=== PATIENT | female | born 1945 | race Caucasian/White ===

== ENCOUNTER 2019-11-18 17:39 | Emergency (ER) | payer MEDICARE, MEDICAID ==
[~2019-11-18] VITALS: Ht 165.1 cm; Wt 68.0 kg
[~2019-11-18 17:39] MED LIST: ACET500T68 PO; ALBU2.5V8 IH; AMIO200T4 PO; AMIO200T7 PO; APIX5TAB PO; ATOR40TA59 PO; CETI10TA16 PO; CYAN100031 PO; DEXT15DR5 EACHEYE; ERGO800010 PO; ERYT1OIN6 OP; ESCITALOPRAM OX10 MG PO; EZET10TA20 PO; FERR325T14 PO; FLUT16SP NS; HYDR-2868 PO; HYDR-3164 PO; INSU100I13 SQ; LIDO700A21 TP; MELA5TAB11 PO; METF500T11 PO; MICO113C TP; OLOP2.5D EACHEYE; OXYC5CAP PO; PANT40TA77 PO; POLY2500 PO; VITA1CAP PO
[2019-11-18 17:55] VITALS: BP 160/93
--- NOTE | 2019-11-18 18:13 | PHYS DOC ---
Past Medical History Past Medical History: A-Fib, Anxiety, Depression, Diabetes-Type I Past Surgical History: Appendectomy Smoking Status: Never Smoker Alcohol Use: None General Adult EDM: Chief Complaint: RIB PAIN HPI: HPI: Patient is a 74 year old female who presents with 3 days ago lost her balance and fell onto the hard wood floor on to her right side. She has bruising to her right lateral humerus and bruising to her right ribs. She states it hurts to take a deep breath. Denies fever, cough, chest pain, hitting her head, loc, dizziness, headache, visual changes, numbness or tingling, abdominal pain, nausea, vomiting. Review of Systems: Review of Systems: Respiratory: Denies cough. + shortness of breath. [] Musculoskeletal: Right rib pain. Denies back pain or joint pain. [] Heart Score: Risk Factors: Risk Factors: DM, Current or recent (<one month) smoker, HTN, HLP, family history of CAD, obesity. Risk Scores: Score 0 - 3: 2.5% MACE over next 6 weeks - Discharge Home Score 4 - 6: 20.3% MACE over next 6 weeks - Admit for Clinical Observation Score 7 - 10: 72.7% MACE over next 6 weeks - Early Invasive Strategies Allergies: Allergies: Allergies Coded Allergies Type Severity Reaction Last Updated Verified fenofibrate Allergy Intermediate 09/13/19 Yes gabapentin Allergy Intermediate 09/13/19 Yes lisinopril Allergy Intermediate 09/13/19 Yes promethazine Allergy Intermediate 09/13/19 Yes rosuvastatin Allergy Intermediate 09/13/19 Yes sitagliptin Allergy Intermediate 09/13/19 Yes buspirone Adverse Reaction Intermediate N/V 09/13/19 Yes codeine Adverse Reaction Intermediate N/V 09/13/19 Yes glyburide Adverse Reaction Intermediate EDEMA 09/13/19 Yes propranolol Adverse Reaction Intermediate BRADYCARDIA 09/13/19 Yes Physical Exam: PE: Constitutional: Well developed, well nourished, no acute distress, non-toxic appearance. [] HENT: Normocephalic, atraumatic, bilateral external ears normal, oropharynx moist, no oral exudates, nose normal. [] Eyes: PERRLA, EOMI, conjunctiva normal, no discharge. [] Neck: Normal range of motion, no tenderness, supple, no stridor. [] Cardiovascular:Heart rate tachy regular rhythm, no murmur [] Lungs & Thorax: Bilateral upper breath sounds clear and lower breath sounds diminished bilaterally to auscultation [] Abdomen: Bowel sounds normal, soft, no tenderness, no masses, no pulsatile masses. [] Skin: Warm, dry, no erythema, no rash. Bruising to right ribs. Bruising to lateral right humerus. [] Back: No tenderness, no CVA tenderness. [] Extremities: No tenderness, no cyanosis, no clubbing, ROM intact, no edema. [] Neurologic: Alert and oriented X 3, normal motor function, normal sensory function, no focal deficits noted. [] Psychologic: Affect normal, judgement normal, mood normal. [] EKG: EKG: [] Radiology/Procedures: Radiology/Procedures: [] Impression: [address] [address] IMAGING REPORT Signed PATIENT: JUANCARLOS THORPE ACCOUNT: [id number] : 1945 LOCATION: ER AGE: 74 SEX: F EXAM STATUS: PRE ER ORD. PHYSICIAN: CHASE NGUYEN APRN REASON: fall, right rib bruising and pain PROCEDURE: RIBS RIGHT RIBS RIGHT History: Fall, right rib bruising and pain Comparison: September 26, 2019 Findings: 4 views of the right ribs are submitted. There is again granuloma lobe at the right lateral lung base. There is no right pneumothorax, dependent pleural fluid, or infiltrate. Left chest was not entirely included. There is atherosclerotic calcification near the aortic arch. No displaced right rib fracture is identified although there could be a nondisplaced right lateral 10th rib fracture. There is some coronary calcification. Impression: 1. No displaced right rib fracture is identified, questionable nondisplaced right lateral 10th rib fracture. Electronically signed by: Silvana Olvera MD (11/18/2019 6:29 PM) [facility] DICTATED and SIGNED BY: SILVANA OLVERA MD DATE: 11/18/[address] [id number] IMAGING REPORT Signed PATIENT: JUANCARLOS THORPE ACCOUNT: [id number] : 1945 LOCATION: ER AGE: 74 SEX: F EXAM STATUS: PRE ER ORD. PHYSICIAN: CHASE NGUYEN APRN REASON: fall, right rib bruising and pain PROCEDURE: CHEST PA & LATERAL Chest radiograph 11/18/2019 6:01 PM INDICATION: Fall with right rib bruising and pain COMPARISON: 09/13/2019 TECHNIQUE: Frontal and lateral views of the chest are provided. FINDINGS: The cardiomediastinal silhouette is within normal limits. There are no pleural effusions. There is no pulmonary vascular congestion. There is no pneumothorax. The lungs are clear. 9 mm calcified granuloma noted in the lateral right lung base. Pulmonary emphysematous changes are present. No significant osseous abnormality is identified. IMPRESSION: COPD changes without acute cardiopulmonary process. No definite acute osseous abnormality is visualized. Electronically signed by: Romeo Damon MD (11/18/2019 6:31 PM) [facility] DICTATED and SIGNED BY: ROMEO DAMON MD DATE: 11/18/191830 Course & Med Decision Making: Course & Med Decision Making Pertinent Labs and Imaging studies reviewed. (See chart for details) Alert and oriented. Speaks in full clear sentences. Patient does have generalized tremors. States she is able to get up and walk on her own without a cane or a walker. She states she is best been taking Tylenol for pain but is painful. I will order her a incentive spirometer. Bruising to the right ribs in a horizontal line that wraps around to part of the posterior side of ribs. No crepitus is felt but the area is very tender. Patient does have a vertical lateral humerus bruising but there is no deformity or swelling or pain with palpation. She has strong typing bookkeeper in the right upper extremity that is affected. She can make a fist and fully extend the arm at the elbow and has full range of motion of the shoulder. Denies any pain with movement. Radial pulse tremor present. Skin is pink warm and dry. Cap refill less than 3 seconds. Lungs are clear in upper lobes but diminished in lower lobes bilaterally. Patient has a history of A. fib, anxiety, diabetes, depression, appendectomy. Patient states that although she is allergic to codeine she can take hydrocodone and she has taken it before. Patient is educated on incentive spirometry and how it is important to use it to lower her risk of pneumonia. [] Power Disclaimer: Power Disclaimer: This electronic medical record was generated, in whole or in part, using a voice recognition dictation system. Departure Departure Impression: Primary Impression: Fall Qualified Codes: W19.XXXA - Unspecified fall, initial encounter Additional Impression: Rib fracture Qualified Codes: S22.31XA - Fracture of one rib, right side, initial encounter for closed fracture Disposition: HOME, SELF-CARE Condition: STABLE Referrals: UNKNOWN PCP NAME (PCP) Patient Instructions: Incentive Spirometer, Rib Fracture, Kkrn-da-[id number] Additional Instructions: Do not wrap anything around your ribs. Use incentive spirometer to lower risk of Pneumonia. Follow up with primary care provider. Take medication as prescribed. Do not drive or drink alcohol on this medication as it will make you sleepy. Scripts Hydrocodone/Apap 5-325 (NORCO 5-325 TABLET) 1 Each Tablet 1 TAB PO PRN Q6HRS PRN for PAIN, #10 TAB 0 Refills Prov: CHASE NGUYEN APRN 11/18/19 CHASE NGUYEN APRN Nov 18, 2019 18:13
[2019-11-18] MEDS: HYDROcodone/APAP 5/325MG 1 TAB TABLET PO ONE (18:15)
--- NOTE | 2019-11-18 18:32 | RAD ---
RIBS RIGHT History: Fall, right rib bruising and pain Comparison: September 26, 2019 Findings: 4 views of the right ribs are submitted. There is again granuloma lobe at the right lateral lung base. There is no right pneumothorax, dependent pleural fluid, or infiltrate. Left chest was not entirely included. There is atherosclerotic calcification near the aortic arch. No displaced right rib fracture is identified although there could be a nondisplaced right lateral 10th rib fracture. There is some coronary calcification. Impression: 1. No displaced right rib fracture is identified, questionable nondisplaced right lateral 10th rib fracture. Electronically signed by: Sunday Marin MD (11/18/2019 6:29 PM) [facility]
--- NOTE | 2019-11-18 18:34 | RAD ---
Chest radiograph 11/18/2019 6:01 PM INDICATION: Fall with right rib bruising and pain COMPARISON: 09/13/2019 TECHNIQUE: Frontal and lateral views of the chest are provided. FINDINGS: The cardiomediastinal silhouette is within normal limits. There are no pleural effusions. There is no pulmonary vascular congestion. There is no pneumothorax. The lungs are clear. 9 mm calcified granuloma noted in the lateral right lung base. Pulmonary emphysematous changes are present. No significant osseous abnormality is identified. IMPRESSION: COPD changes without acute cardiopulmonary process. No definite acute osseous abnormality is visualized. Electronically signed by: Carley Valerio MD (11/18/2019 6:31 PM) [facility]
[2019-11-18] MEDS ORDERED: HYDR-3164 PO (18:40)
== END 2019-11-18 19:05 | disposition home or self-care (01) ==
LOC: ER 17:39
DX: S22.31XA Fracture of one rib, right side, initial encounter for closed fracture (principal); S40.011A Contusion of right shoulder, initial encounter; E10.9 Type 1 diabetes mellitus without complications; I48.91 Unspecified atrial fibrillation; Z90.89 Acquired absence of other organs; Z88.5 Allergy status to narcotic agent; Z88.8 Allergy status to other drugs, medicaments and biological substances; W18.39XA Other fall on same level, initial encounter; Y93.89 Activity, other specified; Y92.89 Other specified places as the place of occurrence of the external cause; Y99.8 Other external cause status
CPT/HCPCS: 71046; 71100; 99284

== ENCOUNTER 2020-01-02 17:56 | Emergency (ER) | payer MEDICARE, MEDICAID ==
[~2020-01-02] VITALS: Ht 162.6 cm; Wt 77.2 kg
[~2020-01-02 17:56] MED LIST changes: +METF-658 PO; -METF500T11 PO; -OLOP2.5D EACHEYE; +OLOP2.5D12 EACHEYE
[2020-01-02] MEDS ORDERED: IV NORMAL SALINE 1000ML BAG 1,000 ML IV SCH (18:25)
[2020-01-02] MEDS ORDERED: ONDANSETRON PF 4 MG/2 ML VIAL. IVP ONE (18:30)
--- NOTE | 2020-01-02 18:43 | PHYS DOC ---
Past Medical History Past Medical History: A-Fib, Anxiety, Depression, Diabetes-Type I Past Surgical History: Appendectomy Smoking Status: Never Smoker Alcohol Use: None General Adult EDM: Chief Complaint: ABDOMINAL PAIN HPI: HPI: Patient is a 74 year old female who presents with complaint of lower abdominal pain for the last 3 days. Patient states that pain has progressively gotten worse. Currently she rates her pain to be an 8 out of 10. She denies any nausea, vomiting or diarrhea. She describes pain as a deep ache. Patient indicates that she has had a number of abdominal surgeries in the past to include appendectomy. Patient is not aware of any exacerbating or alleviating factors. [] Review of Systems: Review of Systems: Constitutional: Denies fever or chills. [] Respiratory: Denies cough or shortness of breath. [] Cardiovascular: Denies chest pain or edema. [] GI: Complains of lower abdominal pain without vomiting or diarrhea. [] Integument: Denies rash. [] Neurologic: Denies headache, focal weakness or sensory changes. [] A full 10 point review of systems has been reviewed and is otherwise negative. Heart Score: Risk Factors: Risk Factors: DM, Current or recent (<one month) smoker, HTN, HLP, family history of CAD, obesity. Risk Scores: Score 0 - 3: 2.5% MACE over next 6 weeks - Discharge Home Score 4 - 6: 20.3% MACE over next 6 weeks - Admit for Clinical Observation Score 7 - 10: 72.7% MACE over next 6 weeks - Early Invasive Strategies Current Medications: Current Medications Medications (Trade) Dose Ordered Sig/[facility] Start Time Stop Time Status Last Admin Dose Admin Fentanyl Citrate (Fentanyl 2ml Vial) 25 mcg PRN Q15MIN PRN 01/02/20 18:30 01/03/20 18:29 Ondansetron HCl (Zofran) 4 mg 1X ONCE 01/02/20 18:30 01/02/20 18:31 DC Sodium Chloride 1,000 ml @ 1,000 mls/hr Q1H 01/02/20 18:25 01/02/20 19:24 Allergies: Allergies: Allergies Coded Allergies Type Severity Reaction Last Updated Verified fenofibrate Allergy Intermediate 09/13/19 Yes gabapentin Allergy Intermediate 09/13/19 Yes lisinopril Allergy Intermediate 09/13/19 Yes promethazine Allergy Intermediate 09/13/19 Yes rosuvastatin Allergy Intermediate 09/13/19 Yes sitagliptin Allergy Intermediate 09/13/19 Yes buspirone Adverse Reaction Intermediate N/V 09/13/19 Yes codeine Adverse Reaction Intermediate N/V 09/13/19 Yes glyburide Adverse Reaction Intermediate EDEMA 09/13/19 Yes propranolol Adverse Reaction Intermediate BRADYCARDIA 09/13/19 Yes Physical Exam: PE: Constitutional: Well developed, well nourished, no acute distress, non-toxic appearance. [] HENT: Normocephalic, atraumatic, bilateral external ears normal, oropharynx moist, no oral exudates, nose normal. [] Eyes: PERRLA, EOMI, conjunctiva normal, no discharge. [] Neck: Normal range of motion, no tenderness, supple. [] Cardiovascular: Regular rate and rhythm [] Lungs & Thorax: Bilateral breath sounds clear to auscultation [] Abdomen: Bowel sounds normal, soft, no tenderness. [] Skin: Warm, dry, no erythema, no rash. [] Extremities: No tenderness, no cyanosis, no clubbing, ROM intact. [] Neurologic: Alert and oriented X 3, no focal deficits noted. [] EKG: EKG: EKG demonstrates normal sinus rhythm with rate of 91. [] Radiology/Procedures: Radiology/Procedures: [] Impression: PROCEDURE: CT ABDOMEN PELVIS WO CONTRAST Exam: CT of abdomen and pelvis without contrast INDICATION: Lower abdominal pain TECHNIQUE: Sequential axial images through the abdomen and pelvis obtained without IV contrast. Sagittal and coronal reformatted images were reconstructed from the axial data and reviewed. Comparisons: 09/24/2019 FINDINGS: Heart size is normal. No pericardial effusion. Visualized lung bases are clear. No pleural effusion. Evaluation of solid organs is limited secondary to noncontrast technique. Liver, spleen, pancreas, gallbladder and adrenals are unremarkable. No perinephric inflammation or hydronephrosis. No renal or ureteral calculi are identified. Bladder is decompressed not well evaluated. Uterus is absent. No abnormal adnexal mass. Few scattered diverticula noted at the sigmoid colon without evidence of acute diverticulitis. There is fat stranding noted in the right lower quadrant surrounding a loop of distal ileum which demonstrates wall thickening. Redemonstration of spiculated nodule at the base of the appendix. No free intra-abdominal air or fluid. Abdominal aorta has a normal course and caliber. No enlarged abdominal lymph nodes are identified. No suspicious osseous lesions or acute fractures. IMPRESSION: 1. Wall thickening and adjacent inflammatory changes at the distal ileum favored represent a focal enteritis. 2. Redemonstration of spiculated nodule in the right lower quadrant mesentery at the base of the appendix. Differential remains unchanged from prior study. The appendix itself is not dilated. Exposure: One or more of the following in the visualized dose reduction techniques were utilized for this examination: 1. Automated exposure control 2. Adjustment of the MA and/or KV according to patient size 3. Use of iterative of reconstructive technique Electronically signed by: Hunter Greco MD (01/02/2020 9:50 PM) [id number] DICTATED and SIGNED BY: HUNTER GRECO MD DATE: 01/02/202149 Course & Med Decision Making: Course & Med Decision Making Pertinent Labs and Imaging studies reviewed. (See chart for details) [] Dragon Disclaimer: Dragon Disclaimer: This electronic medical record was generated, in whole or in part, using a voice recognition dictation system. Departure Departure Impression: Primary Impression: Lower abdominal pain Disposition: HOME, SELF-CARE Condition: STABLE Referrals: UNKNOWN PCP NAME (PCP) Patient Instructions: Abdominal Pain Scripts Ondansetron (ONDANSETRON ODT) 4 Mg Tab.rapdis 1 TAB PO PRN Q6-8HRS PRN for NAUSEA, #15 TAB Prov: BRIAN APPLE Jr. DO 01/02/20 Hydrocodone/Apap 5-325 (NORCO 5-325 TABLET) 1 Each Tablet 1-2 EACH PO PRN Q6HRS PRN for PAIN, #15 as needed for pain Prov: BRIAN APPLE Jr. DO 01/02/20 Justicifation of Admission Dx: Justifications for Admission: Justification of Admission Dx: N/A BRIAN APPLE Jr. DO Jan 02, 2020 18:43
[2020-01-02 18:58] LABS: BASO # 0.1 x10^3/uL (0.0-0.2); BASO % 1 % (0-3); EOS # 0.2 x10^3/uL (0.0-0.7); EOS % 3 % (0-3); HEMATOCRIT 39.3 % (36.0-47.0); HEMOGLOBIN 13.4 g/dL (12.0-15.5); LYMPH # 1.8 x10^3/uL (1.0-4.8); LYMPH % 29 % (24-48); MEAN CORPUSCULAR HEMOGLOBIN 30 pg (25-35); MEAN CORPUSCULAR HGB CONC 34 g/dL (31-37); MEAN CORPUSCULAR VOLUME 88 fL (79-100); MONO # 0.5 x10^3/uL (0.0-1.1); MONO % 9 % (0-9); NEUT # 3.8 x10^3/uL (1.8-7.7); NEUT % 59 % (31-73); PLATELET COUNT 171 x10^3/uL (140-400); RED BLOOD COUNT 4.46 x10^6/uL (3.50-5.40); RED CELL DISTRIBUTION WIDTH 14.2 % (11.5-14.5); WHITE BLOOD COUNT 6.5 x10^3/uL (4.0-11.0)
[2020-01-02] MEDS: fentaNYL PF VIAL 100 MCG/2 ML VIAL IV PRN ×4 (19:03→21:02)
[2020-01-02 19:06] LABS: CALCIUM 8.2 mg/dL (8.5-10.1); CREATININE 1.3 mg/dL (0.6-1.0); GFR 40.2; POTASSIUM 3.8 mmol/L (3.5-5.1)
[2020-01-02 19:11] LABS: ALBUMIN 3.4 g/dL (3.4-5.0); ALBUMIN/GLOBULIN RATIO 1.2 (1.0-1.7); TOTAL BILIRUBIN 0.3 mg/dL (0.2-1.0); TOTAL PROTEIN 6.3 g/dL (6.4-8.2)
[2020-01-02 20:42] LABS: BILIRUBIN,URINE SMALL (NEG); CLARITY,URINE CLEAR; NITRITE,URINE NEGATIVE (NEG); PROTEIN,URINE NEGATIVE (NEG-TRACE)
[2020-01-02 20:48] LABS: COLOR,URINE YELLOW
[2020-01-02 20:49] LABS: BACTERIA,URINE FEW /HPF (0-FEW); RBC,URINE OCC /HPF (0-2); SQUAMOUS EPITHELIAL CELL,UR MANY /LPF
--- NOTE | 2020-01-02 21:53 | RAD ---
Exam: CT of abdomen and pelvis without contrast INDICATION: Lower abdominal pain TECHNIQUE: Sequential axial images through the abdomen and pelvis obtained without IV contrast. Sagittal and coronal reformatted images were reconstructed from the axial data and reviewed. Comparisons: 09/24/2019 FINDINGS: Heart size is normal. No pericardial effusion. Visualized lung bases are clear. No pleural effusion. Evaluation of solid organs is limited secondary to noncontrast technique. Liver, spleen, pancreas, gallbladder and adrenals are unremarkable. No perinephric inflammation or hydronephrosis. No renal or ureteral calculi are identified. Bladder is decompressed not well evaluated. Uterus is absent. No abnormal adnexal mass. Few scattered diverticula noted at the sigmoid colon without evidence of acute diverticulitis. There is fat stranding noted in the right lower quadrant surrounding a loop of distal ileum which demonstrates wall thickening. Redemonstration of spiculated nodule at the base of the appendix. No free intra-abdominal air or fluid. Abdominal aorta has a normal course and caliber. No enlarged abdominal lymph nodes are identified. No suspicious osseous lesions or acute fractures. IMPRESSION: 1. Wall thickening and adjacent inflammatory changes at the distal ileum favored represent a focal enteritis. 2. Redemonstration of spiculated nodule in the right lower quadrant mesentery at the base of the appendix. Differential remains unchanged from prior study. The appendix itself is not dilated. Exposure: One or more of the following in the visualized dose reduction techniques were utilized for this examination: 1. Automated exposure control 2. Adjustment of the MA and/or KV according to patient size 3. Use of iterative of reconstructive technique Electronically signed by: Jimmy Lynne MD (01/02/2020 9:50 PM) [id number]
[2020-01-02] MEDS ORDERED: HYDR-3164 PO (23:07)
[2020-01-02] MEDS ORDERED: ONDA4TAB12 PO (23:07)
[2020-01-02 23:40] VITALS: BP 137/67
--- NOTE | 2020-01-03 06:51 | EKG ---
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
== END 2020-01-02 23:51 | disposition home or self-care (01) ==
LOC: ER 17:56
DX: R10.30 Lower abdominal pain, unspecified (principal); I48.91 Unspecified atrial fibrillation; E10.9 Type 1 diabetes mellitus without complications; Z90.89 Acquired absence of other organs
CPT/HCPCS: 36415; 74176; 80053; 81001; 83690; 85025; 87086; 93005; 96374; 96375; 96376; 99285; J2405; J3010; J7030

== ENCOUNTER 2020-02-08 06:03 | Emergency (ER) | payer MEDICARE, MEDICAID ==
[~2020-02-08] VITALS: Ht 172.7 cm; Wt 76.4 kg
[~2020-02-08 06:03] MED LIST changes: +ONDA4TAB12 PO
[2020-02-08] MEDS ORDERED: DIPH,PERTUSS(ACELL),TET VAC/PF 0.5 ML SYRINGE. VAX IM ONE (07:15)
--- NOTE | 2020-02-08 07:23 | RAD ---
Examination: CT head, cervical spine, maxillofacial bones without contrast CT HEAD INDICATION: Reason: fell out of bed, left side head injury, neck pain / Spl. Instructions: / History: COMPARISON: None Available. Exposure: One or more of the following individualized dose reduction techniques were utilized for this examination: 1. Automated exposure control 2. Adjustment of the mA and/or kV according to patient size 3. Use of iterative reconstruction technique TECHNIQUE: 5 mm contiguous axial images were obtained from the skull base to the vertex in both bone and soft tissue algorithm. FINDINGS: Mild soft tissue swelling identified in the left supraorbital forehead region likely secondary to contusion. No evidence of acute intracranial hemorrhage. No extra-axial fluid collections. No mass effect or midline shift. Ventricular size is appropriate. Basal cisterns are patent. No fractures identified.Ashton-white differentiation is preserved.Globes and orbits are within normal limits. Paranasal sinuses and mastoid air cells are clear. IMPRESSION: 1. No acute intracranial findings. 2. Mild soft tissue swelling identified in the left supraorbital forehead region likely secondary to contusion. CT CERVICAL SPINE INDICATION: Reason: fell out of bed, left side head injury, neck pain / Spl. Instructions: / History: COMPARISON: None Available. Technique: 2.5 mm contiguous axial images were obtained from the skull base through the cervicothoracic junction in both bone and soft tissue algorithm. Additional sagittal and coronal reconstructions were also performed. FINDINGS: Vertebral body height and alignment are maintained. Cervical lordosis is preserved. The lateral masses of C1 are aligned upon C2. No fractures identified. The bony canal is patent throughout. Moderate to severe intervertebral disc height loss identified cervical spine particularly at C5-C6, C6-C7, C7-T1 vertebral levels the bilateral facets are well aligned. Moderate uncovertebral degenerative changes The paraspinous soft tissues are unremarkable. Visualized intracranial contents are unremarkable. Lung apices are clear. IMPRESSION: 1. No acute fracture the cervical spine. Correlate clinically. 2. Moderate to severe degenerative changes cervical spine. EXAM: CT FACIAL BONES WITHOUT CONTRAST History: Reason: fell out of bed, left side head injury, neck pain / Spl. Instructions: / History: COMPARISON: None TECHNIQUE: Noncontrast images of the facial bones are performed. Coronal and sagittal reformatted images are also presented for interpretation. FINDINGS: No fracture, dislocation or other acute bony abnormality is identified. There is no soft tissue abnormality or radiopaque foreign body. The paranasal sinuses and mastoid air cells are clear, without air-fluid levels. The globes and orbits are intact in CT appearance. There is no retrobulbar hematoma. IMPRESSION: 1. Mild soft tissue swelling identified in the left supraorbital soft tissue region likely secondary to contusion. 2. No acute fracture of the facial bones. Electronically signed by: Julio Cesar Warner MD (02/08/2020 7:20 AM) [id number]
--- NOTE | 2020-02-08 07:37 | PHYS DOC ---
Past Medical History Past Medical History: A-Fib, Anxiety, Depression, Diabetes-Type I Past Surgical History: Appendectomy Smoking Status: Never Smoker Alcohol Use: None General Adult EDM: Chief Complaint: facial injury HPI: HPI: Patient is a 74 year old female who was brought here by her granddaughter for evaluation left-sided facial injury after she fell out of her bed this morning. Patient is on Eliquis due to history of atrial fibrillation. Patient states she woke up this morning, accidentally rolled out of her bed, landed on her left side, hit the forehead on the ground, no loss of consciousness. Patient complained of neck pain, back pain, left hip pain. Patient denies any abdominal pain, no chest pain, no arm pain, no shoulder pain. Patient denies any cough or fever. Review of Systems: Review of Systems: Constitutional: Denies fever or chills. [] Eyes: Denies change in visual acuity. [] HENT: Denies nasal congestion or sore throat. [] Respiratory: Denies cough or shortness of breath. [] Cardiovascular: Denies chest pain or edema. [] GI: Denies abdominal pain, nausea, vomiting, bloody stools or diarrhea. [] : Denies dysuria. [] Musculoskeletal: Positive for back pain, neck pain, left-sided hip pain Integument: Positive for skin contusion on the left eyebrow area Neurologic: Denies headache, focal weakness or sensory changes. [] Endocrine: Denies polyuria or polydipsia. [] Lymphatic: Denies swollen glands. [] Psychiatric: Denies depression or anxiety. [] Heart Score: Risk Factors: Risk Factors: DM, Current or recent (<one month) smoker, HTN, HLP, family history of CAD, obesity. Risk Scores: Score 0 - 3: 2.5% MACE over next 6 weeks - Discharge Home Score 4 - 6: 20.3% MACE over next 6 weeks - Admit for Clinical Observation Score 7 - 10: 72.7% MACE over next 6 weeks - Early Invasive Strategies Current Medications: Current Medications Medications (Trade) Dose Ordered Sig/Jose Start Time Stop Time Status Last Admin Dose Admin Diphtheria/ Tetanus/Acell Pertussis (ADACEL TDap SYRINGE) 0.5 ml ONCE ONCE 02/08/20 07:15 02/08/20 07:16 DC 02/08/20 07:25 0.5 ML Allergies: Allergies: Allergies Coded Allergies Type Severity Reaction Last Updated Verified fenofibrate Allergy Intermediate 09/13/19 Yes gabapentin Allergy Intermediate 09/13/19 Yes lisinopril Allergy Intermediate 09/13/19 Yes promethazine Allergy Intermediate 09/13/19 Yes rosuvastatin Allergy Intermediate 09/13/19 Yes sitagliptin Allergy Intermediate 09/13/19 Yes buspirone Adverse Reaction Intermediate N/V 09/13/19 Yes codeine Adverse Reaction Intermediate N/V 09/13/19 Yes glyburide Adverse Reaction Intermediate EDEMA 09/13/19 Yes propranolol Adverse Reaction Intermediate BRADYCARDIA 09/13/19 Yes Physical Exam: PE: Constitutional: Well developed, well nourished, no acute distress, non-toxic appearance. [] HENT: Normocephalic, atraumatic, bilateral external ears normal, oropharynx moist, no oral exudates, nose normal. [] Eyes: PERRLA, EOMI, conjunctiva normal, no discharge. [] Neck: Normal range of motion, no tenderness, supple, no stridor. [] Cardiovascular:Heart rate regular rhythm, no murmur [] Lungs & Thorax: Bilateral breath sounds clear to auscultation [] Abdomen: Bowel sounds normal, soft, no tenderness, no masses, no pulsatile masses. [] Skin: Skin contusion on left arm area, skin contusion on left lateral chest area on the back, no crepitus. There is skin contusion on left eyebrow area] Back: There is midline tenderness to palpation at L1 and T12 area, no CVA tenderness, no bony step-off. Extremities: No tenderness, no cyanosis, no clubbing, ROM intact, no edema. [] Neurologic: Alert and oriented X 3, normal motor function, normal sensory function, no focal deficits noted. [] Psychologic: Affect normal, judgement normal, mood normal. [] Current Patient Data: Vital Signs: Vital Signs Date Time Temp Pulse Resp B/P (MAP) Pulse Ox O2 Delivery O2 Flow Rate FiO2 02/08/20 06:10 98.3 85 18 146/73 (97) 98 Room Air 98.3 EKG: EKG: [] Radiology/Procedures: Radiology/Procedures: [][facility] [address] [place] [address] IMAGING REPORT Signed PATIENT: JUANCARLOS THORPE ACCOUNT: [id number] : 1945 LOCATION: ER AGE: 74 SEX: F EXAM STATUS: REG ER ORD. PHYSICIAN: FAIZAN PHIPPS DO REASON: fell out of her bed, facial injury PROCEDURE: CT MAXILLOFACIAL WO CONTRAST Examination: CT head, cervical spine, maxillofacial bones without contrast CT HEAD INDICATION: Reason: fell out of bed, left side head injury, neck pain / Spl. Instructions: / History: COMPARISON: None Available. Exposure: One or more of the following individualized dose reduction techniques were utilized for this examination: 1. Automated exposure control 2. Adjustment of the mA and/or kV according to patient size 3. Use of iterative reconstruction technique TECHNIQUE: 5 mm contiguous axial images were obtained from the skull base to the vertex in both bone and soft tissue algorithm. FINDINGS: Mild soft tissue swelling identified in the left supraorbital forehead region likely secondary to contusion. No evidence of acute intracranial hemorrhage. No extra-axial fluid collections. No mass effect or midline shift. Ventricular size is appropriate. Basal cisterns are patent. No fractures identified.Ashton-white differentiation is preserved.Globes and orbits are within normal limits. Paranasal sinuses and mastoid air cells are clear. IMPRESSION: 1. No acute intracranial findings. 2. Mild soft tissue swelling identified in the left supraorbital forehead region likely secondary to contusion. CT CERVICAL SPINE INDICATION: Reason: fell out of bed, left side head injury, neck pain / Spl. Instructions: / History: COMPARISON: None Available. Technique: 2.5 mm contiguous axial images were obtained from the skull base through the cervicothoracic junction in both bone and soft tissue algorithm. Additional sagittal and coronal reconstructions were also performed. FINDINGS: Vertebral body height and alignment are maintained. Cervical lordosis is preserved. The lateral masses of C1 are aligned upon C2. No fractures identified. The bony canal is patent throughout. Moderate to severe intervertebral disc height loss identified cervical spine particularly at C5-C6, C6-C7, C7-T1 vertebral levels the bilateral facets are well aligned. Moderate uncovertebral degenerative changes The paraspinous soft tissues are unremarkable. Visualized intracranial contents are unremarkable. Lung apices are clear. IMPRESSION: 1. No acute fracture the cervical spine. Correlate clinically. 2. Moderate to severe degenerative changes cervical spine. EXAM: CT FACIAL BONES WITHOUT CONTRAST History: Reason: fell out of bed, left side head injury, neck pain / Spl. Instructions: / History: COMPARISON: None TECHNIQUE: Noncontrast images of the facial bones are performed. Coronal and sagittal reformatted images are also presented for interpretation. FINDINGS: No fracture, dislocation or other acute bony abnormality is identified. There is no soft tissue abnormality or radiopaque foreign body. The paranasal sinuses and mastoid air cells are clear, without air-fluid levels. The globes and orbits are intact in CT appearance. There is no retrobulbar hematoma. IMPRESSION: 1. Mild soft tissue swelling identified in the left supraorbital soft tissue region likely secondary to contusion. 2. No acute fracture of the facial bones. Electronically signed by: Julio eCsar Warner MD (02/08/2020 7:20 AM) [id number] DICTATED and SIGNED BY: JULIO CESAR WARNER MD DATE: 02/08/20719 [facility] [address] [place] [address] IMAGING REPORT Signed PATIENT: JUANCARLOS THORPE ACCOUNT: [id number] : 1945 LOCATION: ER AGE: 74 SEX: F EXAM STATUS: REG ER ORD. PHYSICIAN: FAIZAN PHIPPS DO REASON: fell, left femur pain PROCEDURE: LEFT FEMUR XRAY Two-view study left femur Clinical indications: Fall. Left femur pain. FINDINGS: The proximal left femur is not seen in this study. No acute fracture or lytic process of the rest of the left femur is seen. 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 No left knee joint effusion is seen. IMPRESSION: No acute fracture is evident. The proximal left femur is not seen in this study. However, the proximal left femur was seen on a left hip study performed today as well. No acute fracture or lytic process is seen on this study and the left hip joint is unremarkable. Electronically signed by: Missy Kidd MD (02/08/2020 10:38 AM) [id number] DICTATED and SIGNED BY: MISSY KIDD MD DATE: 02/08/[address] [facility] [address] [place] [address] IMAGING REPORT Signed PATIENT: JUANCARLOS THORPE ACCOUNT: [id number] : 1945 LOCATION: ER AGE: 74 SEX: F EXAM STATUS: REG ER ORD. PHYSICIAN: FAIZAN PHIPPS DO REASON: fell, left femur pain PROCEDURE: LEFT FEMUR XRAY Two-view study left femur Clinical indications: Fall. Left femur pain. FINDINGS: The proximal left femur is not seen in this study. No acute fracture or lytic process of the rest of the left femur is seen. 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 No left knee joint effusion is seen. IMPRESSION: No acute fracture is evident. The proximal left femur is not seen in this study. However, the proximal left femur was seen on a left hip study performed today as well. No acute fracture or lytic process is seen on this study and the left hip joint is unremarkable. Electronically signed by: Missy Kidd MD (02/08/2020 10:38 AM) [id number] DICTATED and SIGNED BY: MISSY KIDD MD DATE: 02/08/20 1038 Course & Med Decision Making: Course & Med Decision Making Pertinent Labs and Imaging studies reviewed. (See chart for details) Patient is a 74-year-old female who was evaluated in the ER after she fell out of her bed this morning, CT scan of the head C-spine, facial bones did not show any acute fracture. X-ray of her thoracic lumbar spine pelvic did not show any fracture. Patient will be discharged home, she will need to follow-up with her family doctor as needed. Patient was given a tetanus vaccination in the ER. Tasneemon Disclaimer: Poewr Disclaimer: This electronic medical record was generated, in whole or in part, using a voice recognition dictation system. Departure Departure Impression: Primary Impression: Facial contusion Additional Impression: Back contusion Disposition: HOME, SELF-CARE Condition: STABLE Referrals: UNKNOWN PCP NAME (PCP) please follow up with your doctor for reevaluation on Thursday Patient Instructions: Back Pain, Adult, Facial or Scalp Contusion Additional Instructions: Thank you for visiting our Emergency Department. We appreciate you trusting us with your care. If any additional problems come up don't hesitate to return to visit us. Please follow up with your primary care provider so they can plan a dditional care if needed and know about the problem that you had. If symptoms worsen come back to the Emergency Department. Any concerning symptoms that start such as chest pain, shortness of air, weakness or numbness on one side of the body, running high fevers or any other concerning symptoms return to the ER. Justicifation of Admission Dx: Justifications for Admission: Justification of Admission Dx: N/A FAIZAN PHIPPS DO Feb 08, 2020 07:37
[2020-02-08] MEDS ORDERED: HYDROcodone/APAP 5/325MG 1 TAB TABLET PO ONE (08:45)
--- NOTE | 2020-02-08 08:45 | RAD ---
Examination: HIP LEFT 2V WITH PELVIS History: Reason: fell out of her bed, left hip and pelvic pain / Spl. Instructions: / History: Comparison/Correlation: 01/02/2020 CT abdomen and pelvis without contrast Findings: Frontal view of the pelvis, frontal view of the left hip, and rolled views of the left hip were provided. A true frog-leg lateral views provided. Surgical clips are present overlying the right acetabulum and supra-acetabular region. Hip joint spaces are symmetric. No displaced fracture or bone destruction. Sacroiliac joint space narrowing bilaterally is present. Soft tissues are unremarkable. Calcific densities in the pelvis which probably represent phleboliths are noted. Impression: No sign of any degenerative change. No fracture. If occult fracture is a concern, further imaging with MRI or CT is recommended. Electronically signed by: Tone Nj MD (02/08/2020 8:41 AM) [id number]
--- NOTE | 2020-02-08 08:47 | RAD ---
EXAM: CHEST 1 VIEW History: History of fall COMPARISON: 11/18/2019 TECHNIQUE: Single portable radiograph of the chest FINDINGS: The cardiac silhouette is unremarkable. The lungs are clear bilaterally. Scattered calcified granulomas identified in the bilateral lungs. IMPRESSION: No radiographic evidence of an acute cardiopulmonary process. Electronically signed by: Julio Cesar Warner MD (02/08/2020 8:44 AM) [id number]
--- NOTE | 2020-02-08 08:51 | RAD ---
Examination: THORACIC SPINE 3V, LUMBAR SPINE 2-3V History: Reason: back pain, fell out of her bed CT First / Spl. Instructions: / History: Comparison/Correlation: None Findings: Frontal and lateral views of the thoracic and lumbar spine were obtained. 3 views of the thoracic spine and 3 views of the lumbar spine were provided. Incidental note is made of severe C5-6 disc space narrowing and spurring. Spurring at C6 also is present. Alignment of the thoracic spine is normal. Slight retrolisthesis of L4 in relation L5 is suggested that the patient is somewhat rotated and this may in part be artifactual. No displaced fracture or bone destruction. Facet joint degenerative changes about the L5 posterior elements. The vertebral body heights are adequate. L1 vertebral body bone island is present. No displaced fracture or bone destruction. Surgical clip overlying the right acetabulum noted. Calcific amount of the abdominal aorta and iliac arteries noted. Impression: Osteopenia. No acute fracture. No significant degenerative changes in thoracic or lumbar spine for the patient's age. Electronically signed by: Tone Nj MD (02/08/2020 8:48 AM) [id number]
[2020-02-08] MEDS ORDERED: ONDANSETRON ODT 4 MG TAB.RAPDIS. PO ONE (09:00)
--- NOTE | 2020-02-08 10:41 | RAD ---
Two-view study left femur Clinical indications: Fall. Left femur pain. FINDINGS: The proximal left femur is not seen in this study. No acute fracture or lytic process of the rest of the left femur is seen. 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 No left knee joint effusion is seen. IMPRESSION: No acute fracture is evident. The proximal left femur is not seen in this study. However, the proximal left femur was seen on a left hip study performed today as well. No acute fracture or lytic process is seen on this study and the left hip joint is unremarkable. Electronically signed by: Mati Kidd MD (02/08/2020 10:38 AM) [id number]
[2020-02-08 11:03] VITALS: BP 159/80
== END 2020-02-08 11:25 | disposition home or self-care (01) ==
LOC: ER 06:03
DX: S00.12XA Contusion of left eyelid and periocular area, initial encounter (principal); S30.0XXA Contusion of lower back and pelvis, initial encounter; M54.2 Cervicalgia; M25.552 Pain in left hip; I97.89 Other postprocedural complications and disorders of the circulatory system, not elsewhere classified; F41.9 Anxiety disorder, unspecified; F32.9 Major depressive disorder, single episode, unspecified; E10.9 Type 1 diabetes mellitus without complications; Z90.89 Acquired absence of other organs; Z88.6 Allergy status to analgesic agent; Z88.5 Allergy status to narcotic agent; W22.8XXA Striking against or struck by other objects, initial encounter; Y93.89 Activity, other specified; Y92.89 Other specified places as the place of occurrence of the external cause; Y99.8 Other external cause status
CPT/HCPCS: 70450; 70486; 71045; 72072; 72100; 72125; 73502; 73552; 90471; 90715; 99285

== ENCOUNTER 2020-04-04 10:05 | Emergency (ER) | payer MEDICARE, MEDICAID ==
[~2020-04-04] VITALS: Ht 165.1 cm; Wt 76.3 kg
[2020-04-04] MEDS ORDERED: fentaNYL PF VIAL 100 MCG/2 ML VIAL IVP ONE (11:15)
[2020-04-04] MEDS ORDERED: ONDANSETRON PF 4 MG/2 ML VIAL. IVP ONE (11:15)
--- NOTE | 2020-04-04 11:17 | PHYS DOC ---
Past Medical History Past Medical History: A-Fib, Anxiety, Depression, Diabetes-Type I, Other Additional Past Medical Histor: essential tremors (CHASE NGUYEN CARPET TILE LAYER) Past Surgical History: Appendectomy, Hysterectomy, Other Additional Past Surgical Histo: exploratory lap (CHASE NGUYEN CARPET TILE LAYER) Smoking Status: Never Smoker Alcohol Use: Occasionally (CHASE NGUYEN CARPET TILE LAYER) General Adult EDM: Chief Complaint: LOWER BACK PAIN OR INJURY HPI: HPI: Patient is a 74 year old female who presents with 3 days of right lower back pain with sharp shooting pain that goes down the back of her leg. She states that she fell yesterday and thinks that it is due to the right leg giving out in the pain. She rates her pain an 8 out of 10. She states when she fell that she did not hit her head or injure anything else. She does have essential tremors. Upon arrival patient states she began having headache at the top of her head that is a throbbing nonradiating pain. She denies this being the worst headache she is ever had or focal weakness. Patient also is now having lower mid abdominal pain with nausea and vomiting since she has arrived. Patient denies chest pain, shortness of air, vision changes, numbness or tingling, focal weakness, diarrhea, dysuria symptoms, neck pain, fever, cough, dizziness. (CHASE NGUYEN CARPET TILE LAYER) Review of Systems: Review of Systems: Constitutional: Denies fever or chills. [] Eyes: Denies change in visual acuity. [] HENT: Denies nasal congestion or sore throat. [] Respiratory: Denies cough or shortness of breath. [] Cardiovascular: Denies chest pain or edema. [] GI: abdominal pain, nausea, vomiting, denies bloody stools or diarrhea. [] : Denies dysuria. [] Musculoskeletal: Right lower back pain radiating right leg or joint pain. Fall. [] Integument: Denies rash. [] Neurologic: headache, denies focal weakness or sensory changes. [] Endocrine: Denies polyuria or polydipsia. [] Lymphatic: Denies swollen glands. [] Psychiatric: Denies depression or anxiety. [] (CHASE NGUYEN CARPET TILE LAYER) Heart Score: Risk Factors: Risk Factors: DM, Current or recent (<one month) smoker, HTN, HLP, family history of CAD, obesity. Risk Scores: Score 0 - 3: 2.5% MACE over next 6 weeks - Discharge Home Score 4 - 6: 20.3% MACE over next 6 weeks - Admit for Clinical Observation Score 7 - 10: 72.7% MACE over next 6 weeks - Early Invasive Strategies (CHASE NGUYEN APRN) Allergies: Allergies: Allergies Coded Allergies Type Severity Reaction Last Updated Verified fenofibrate Allergy Intermediate 04/04/20 Yes gabapentin Allergy Intermediate 04/04/20 Yes lisinopril Allergy Intermediate 04/04/20 Yes promethazine Allergy Intermediate 04/04/20 Yes rosuvastatin Allergy Intermediate 04/04/20 Yes sitagliptin Allergy Intermediate 04/04/20 Yes buspirone Adverse Reaction Intermediate N/V 04/04/20 Yes codeine Adverse Reaction Intermediate N/V 04/04/20 Yes glyburide Adverse Reaction Intermediate EDEMA 04/04/20 Yes propranolol Adverse Reaction Intermediate BRADYCARDIA 04/04/20 Yes (CHASE NGUYEN APRN) Physical Exam: PE: Constitutional: Well developed, well nourished, no acute distress, non-toxic appearance. [] HENT: Normocephalic, atraumatic, bilateral external ears normal, oropharynx moist, no oral exudates, nose normal. [] Eyes: PERRLA, EOMI, conjunctiva normal, no discharge. [] Neck: Normal range of motion, no tenderness, supple, no stridor. [] Cardiovascular:Heart rate regular rhythm, no murmur [] Lungs & Thorax: Bilateral breath sounds clear to auscultation [] Abdomen: Bowel sounds normal, soft, no tenderness, no masses, no pulsatile masses. [] Skin: Warm, dry, no erythema, no rash. [] Back: Right lower back and cervical spine tenderness, no CVA tenderness. [] Extremities: No tenderness, no cyanosis, no clubbing, ROM intact, no edema. [] Neurologic: Alert and oriented X 3, normal motor function, normal sensory function, no focal deficits noted. Essential tremors. [] Psychologic: Affect normal, judgement normal, mood normal. [] (CHASE NGUYEN APRN) Current Patient Data: Vital Signs: Vital Signs Date Time Temp Pulse Resp B/P (MAP) Pulse Ox O2 Delivery O2 Flow Rate FiO2 04/04/20 10:35 98.5 86 20 173/94 (120) 97 Room Air 98.5 (CHASE NGUYEN APRN) EKG: EKG: [] (CHASE NGUYEN APRN) Radiology/Procedures: Radiology/Procedures: [] Impression: [facility] [address] [place] [address] IMAGING REPORT Signed PATIENT: JUANCARLOS THORPE ACCOUNT: [id number] : 1945 LOCATION: ER AGE: 74 SEX: F EXAM STATUS: REG ER ORD. PHYSICIAN: CHASE NGUYEN APRN REASON: FALL, PAIN PROCEDURE: LUMBAR SPINE MIN 4V EXAM: CT Head without IV contrast INDICATION: Reason: FALL, PAIN / Spl. Instructions: / History: TECHNIQUE: Multi-detector row CT images were obtained of the head without the use of IV contrast. All CT scans performed at this facility utilize dose optimization techniques as appropriate to the exam, including the following: Automated exposure control and adjustment of the mA and/or KV according to patient size (this includes techniques or standardized protocols for targeted exams where dose is indication/reason for exam). COMPARISON: None FINDINGS: BRAIN PARENCHYMA: No evidence of acute intraparenchymal hemorrhage or infarct. White matter low density compatible chronic ischemic microvascular changes are present along with mild generalized parenchymal volume loss. VENTRICLES & EXTRA-AXIAL SPACES: Ventricles are within normal limits. Basilar cisterns are patent. No pathologic extra-axial fluid collection or mass. ORBITS: Orbital contents are unremarkable. SINUSES: Visualized paranasal sinuses and mastoid air cells are clear. OSSEOUS & SOFT TISSUES: Calvarium and skull base are intact. IMPRESSION: No acute intracranial pathology. No acute traumatic findings in the head. EXAM: CT Cervical Spine without IV contrast INDICATION: Reason: FALL, PAIN / Spl. Instructions: / History: TECHNIQUE: Multi-detector row CT images were obtained through the cervical spine without the use of IV contrast. Post-processing sagittal and coronal reconstructed images were obtained for interpretation. All CT scans performed at this facility utilize dose optimization techniques as appropriate to the exam, including the following: Automated exposure control and adjustment of the mA and/or KV according to patient size (this includes techniques or standardized protocols for targeted exams where dose is indication/reason for exam). COMPARISON: None FINDINGS: CRANIOCERVICAL JUNCTION: Unremarkable. ALIGNMENT: Alignment is within normal limits. OSSEOUS: No evidence of fracture or bone destruction. DISC SPACES: Multilevel disc degenerative change with disc space narrowing and endplate osteophytic spurring most conspicuous at C5-C6 through C7-T1. FACET JOINTS: Unremarkable. SPINAL CANAL: Unremarkable. NEUROFORAMINA: Unremarkable. SOFT TISSUES: Unremarkable. IMPRESSION: C-spine degenerative changes. No acute traumatic findings. PROCEDURE: THORACIC SPINE 3V CLINICAL INDICATION / HISTORY: Reason: FALL, PAIN / Spl. Instructions: / History: . TECHNIQUE: Thoracic spine was examined in the AP lateral and swimmers projections. COMPARISON: 04/04/2020 FINDINGS: The osseous structures are normally mineralized. There is a normal thoracic kyphosis with normal alignment of the thoracic vertebral bodies. There is preservation of the vertebral body heights as well as the intervertebral disk space heights throughout the thoracic spine. No evidence of acute fracture or subluxation is identified. IMPRESSION: Unremarkable examination of the thoracic spine as described. EXAM: PORTABLE CHEST 1V INDICATION: Reason: FALL, PAIN / Spl. Instructions: / History: . TECHNIQUE: Single view COMPARISON: None FINDINGS: The heart size is normal. The great vessels appear unremarkable. There is no hilar or mediastinal mass. The lungs show calcified granuloma in the right lung base but otherwise are clear. There is no pleural effusion or pneumothorax. There are no significant osseous abnormalities. IMPRESSION: No active cardiopulmonary disease. PROCEDURE: LUMBAR SPINE MIN 4V CLINICAL INDICATION / HISTORY: Reason: FALL, PAIN / Spl. Instructions: / History: . TECHNIQUE: AP, bilateral oblique, lateral and coned-down lateral views of the lumbar spine were obtained COMPARISON: 02/08/2020 L-spine x-ray series. FINDINGS: Five lumbar segments are identified. Lumbar vertebral bodies are normal in height and alignment. Disc height is maintained. Pedicles are intact. No fracture or aggressive osseous lesions are identified. Minimal facet hypertrophic change is present in the lower lumbar spine most notably at L4-L5 through L5-S1. Soft tissues show arterial calcifications in the abdominal aorta. The visualized sacroiliac joints and hips are unremarkable. Moderate stool throughout the large bowel also noted. IMPRESSION: No fracture or traumatic malalignment in the lumbar spine is seen. Electronically signed by: Eugene Wade MD (04/04/2020 12:27 PM) [id number] DICTATED and SIGNED BY: EUGENE WADE MD DATE: 04/04/20 1227 (CHASE NGUYEN APRN) Course & Med Decision Making: Course & Med Decision Making Pertinent Labs and Imaging studies reviewed. (See chart for details) See HPI. Alert and oriented x4. Patient is missing her teeth so at times she is slightly hard to understand and plus she is shaking from her central tremors. Patient does speak in full sentences. She answers all questions appropriately. She is moving all extremities equally and normal. Vital signs are within normal range. With palpation she does have cervical focal bony sp inal tenderness. She does have full range of motion of her neck. There is no trauma to her head for the rest of her body. She states she has been up and walking fine. Abdomen is soft and nontender. Skin is pink warm and dry. No saddle paresthesia. Denies loss of bowel or bladder. X-ray showed no acute finding. Patient does have a urinary tract infection. She will be placed on Keflex antibiotic. I will also send her home with nausea medication. Vital signs remained stable. Patient states that she is still has a headache that she rates about 7. She states that she does have home pain medications that is prescribed to her that she does take for pain. She states that her nausea is better has no abdominal pain. Asked patient if she gets headaches like this and she states sometimes. She states she has been very stressed and has and has 3 very small children living with her and has to stay in the house and cannot get out due to COVID. She states she usually walks with a cane and she has a walker but she does not like to use either. Patient ambulated with a steady gait. Patient was p.o. challenged successfully. She states she is feeling better and is ready to go home. [] (CHASE NGUYEN APRN) Course & Med Decision Making I have reviewed the PA/WOOD FINISHER's note and Plan of Care. I was available for consultation as needed during the patient's visit in the emergency department. I agree with the clinical impression, plans and disposition. (NITHYA TINEO MD) Power Disclaimer: Power Disclaimer: This electronic medical record was generated, in whole or in part, using a voice recognition dictation system. (CHASE NGUYEN APRN) NIHSS Stroke Scale NIH Stroke Scale: NIH Stroke Scale Response (Comments) Value Level of Consciousness: 0 Alert/Responsive 0 LOC Questions: 0 Answers both correctly 0 LOC Commands: 0 Performs both tasks 0 Best Gaze: 0 Normal 0 Visual: 0 No visual loss 0 Facial Palsy: 0 Normal, symmetrical 0 Motor - Left Arm 0 No drift 0 Motor - Right Arm 0 No drift 0 Motor - Left Leg 0 No drift 0 Motor: Right Leg 0 No drift 0 Limb Ataxia: 0 Absent 0 Sensory: 0 No loss 0 Best Language: 0 Normal 0 Dysathria: 0 Normal 0 Extinction and Inattention: 0 Normal 0 Total 0 Departure Departure Impression: Primary Impression: Fall Qualified Codes: W19.XXXA - Unspecified fall, initial encounter Additional Impressions: Headache Qualified Codes: R51 - Headache Nausea & vomiting Qualified Codes: R11.2 - Nausea with vomiting, unspecified Low back pain Qualified Codes: M54.5 - Low back pain Disposition: 01 HOME, SELF-CARE Condition: STABLE Referrals: UNKNOWN PCP NAME (PCP) Patient Instructions: Fall Prevention and Home Safety, General Headache Without Cause, Nausea and Vomiting, Sciatica with Rehab-SportsMed Additional Instructions: Follow-up with primary care provider. If symptoms worsen return to the emergency room. Take medication as prescribed and with food. Drink plenty of fluids. Scripts Cephalexin (KEFLEX) 500 Mg Capsule 1 CAP PO BID for 7 Days, #14 CAP 0 Refills Prov: CHASE NGUYEN APRN 04/04/20 Justicifation of Admission Dx: Justifications for Admission: Justification of Admission Dx: N/A (CHASE NGUYEN APRN) CHASE NGUYEN APRN Apr 04, 2020 11:17 NITHYA TINEO MD Apr 04, 2020 15:08
[2020-04-04 11:43] LABS: BASO % 1 % (0-3); EOS # 0.2 x10^3/uL (0.0-0.7); EOS % 5 % (0-3); HEMATOCRIT 35.8 % (36.0-47.0); HEMOGLOBIN 11.9 g/dL (12.0-15.5); LYMPH # 1.3 x10^3/uL (1.0-4.8); LYMPH % 29 % (24-48); MEAN CORPUSCULAR HEMOGLOBIN 29 pg (25-35); MEAN CORPUSCULAR HGB CONC 33 g/dL (31-37); MEAN CORPUSCULAR VOLUME 88 fL (79-100); MONO # 0.4 x10^3/uL (0.0-1.1); MONO % 9 % (0-9); NEUT # 2.6 x10^3/uL (1.8-7.7); NEUT % 58 % (31-73); PLATELET COUNT 152 x10^3/uL (140-400); RED BLOOD COUNT 4.06 x10^6/uL (3.50-5.40); RED CELL DISTRIBUTION WIDTH 13.3 % (11.5-14.5); WHITE BLOOD COUNT 4.5 x10^3/uL (4.0-11.0)
[2020-04-04 11:51] LABS: PROTHROMBIN TIME PATIENT 16.2 SEC (11.7-14.0)
[2020-04-04 11:53] VITALS: BP 143/69
[2020-04-04 11:53] LABS: CALCIUM 8.6 mg/dL (8.5-10.1); CREATININE 1.1 mg/dL (0.6-1.0); GFR 48.7
[2020-04-04 11:58] LABS: ALBUMIN 3.5 g/dL (3.4-5.0); ALBUMIN/GLOBULIN RATIO 1.3 (1.0-1.7); TOTAL BILIRUBIN 0.5 mg/dL (0.2-1.0); TOTAL PROTEIN 6.2 g/dL (6.4-8.2)
[2020-04-04 12:22] LABS: BILIRUBIN,URINE SMALL (NEG); CLARITY,URINE CLEAR; COLOR,URINE YELLOW; NITRITE,URINE NEGATIVE (NEG); PROTEIN,URINE NEGATIVE (NEG-TRACE)
[2020-04-04 12:26] LABS: HYALINE CASTS, URINE FEW /HPF; SQUAMOUS EPITHELIAL CELL,UR MANY /LPF
[2020-04-04 12:28] LABS: BACTERIA,URINE FEW /HPF (0-FEW); WBC,URINE 20-40 /HPF (0-4); YEAST,URINE PRESENT /HPF
--- NOTE | 2020-04-04 12:30 | RAD ---
EXAM: CT Head without IV contrast INDICATION: Reason: FALL, PAIN / Spl. Instructions: / History: TECHNIQUE: Multi-detector row CT images were obtained of the head without the use of IV contrast. All CT scans performed at this facility utilize dose optimization techniques as appropriate to the exam, including the following: Automated exposure control and adjustment of the mA and/or KV according to patient size (this includes techniques or standardized protocols for targeted exams where dose is indication/reason for exam). COMPARISON: None FINDINGS: BRAIN PARENCHYMA: No evidence of acute intraparenchymal hemorrhage or infarct. White matter low density compatible chronic ischemic microvascular changes are present along with mild generalized parenchymal volume loss. VENTRICLES & EXTRA-AXIAL SPACES: Ventricles are within normal limits. Basilar cisterns are patent. No pathologic extra-axial fluid collection or mass. ORBITS: Orbital contents are unremarkable. SINUSES: Visualized paranasal sinuses and mastoid air cells are clear. OSSEOUS & SOFT TISSUES: Calvarium and skull base are intact. IMPRESSION: No acute intracranial pathology. No acute traumatic findings in the head. EXAM: CT Cervical Spine without IV contrast INDICATION: Reason: FALL, PAIN / Spl. Instructions: / History: TECHNIQUE: Multi-detector row CT images were obtained through the cervical spine without the use of IV contrast. Post-processing sagittal and coronal reconstructed images were obtained for interpretation. All CT scans performed at this facility utilize dose optimization techniques as appropriate to the exam, including the following: Automated exposure control and adjustment of the mA and/or KV according to patient size (this includes techniques or standardized protocols for targeted exams where dose is indication/reason for exam). COMPARISON: None FINDINGS: CRANIOCERVICAL JUNCTION: Unremarkable. ALIGNMENT: Alignment is within normal limits. OSSEOUS: No evidence of fracture or bone destruction. DISC SPACES: Multilevel disc degenerative change with disc space narrowing and endplate osteophytic spurring most conspicuous at C5-C6 through C7-T1. FACET JOINTS: Unremarkable. SPINAL CANAL: Unremarkable. NEUROFORAMINA: Unremarkable. SOFT TISSUES: Unremarkable. IMPRESSION: C-spine degenerative changes. No acute traumatic findings. PROCEDURE: THORACIC SPINE 3V CLINICAL INDICATION / HISTORY: Reason: FALL, PAIN / Spl. Instructions: / History: . TECHNIQUE: Thoracic spine was examined in the AP lateral and swimmers projections. COMPARISON: 04/04/2020 FINDINGS: The osseous structures are normally mineralized. There is a normal thoracic kyphosis with normal alignment of the thoracic vertebral bodies. There is preservation of the vertebral body heights as well as the intervertebral disk space heights throughout the thoracic spine. No evidence of acute fracture or subluxation is identified. IMPRESSION: Unremarkable examination of the thoracic spine as described. EXAM: PORTABLE CHEST 1V INDICATION: Reason: FALL, PAIN / Spl. Instructions: / History: . TECHNIQUE: Single view COMPARISON: None FINDINGS: The heart size is normal. The great vessels appear unremarkable. There is no hilar or mediastinal mass. The lungs show calcified granuloma in the right lung base but otherwise are clear. There is no pleural effusion or pneumothorax. There are no significant osseous abnormalities. IMPRESSION: No active cardiopulmonary disease. PROCEDURE: LUMBAR SPINE MIN 4V CLINICAL INDICATION / HISTORY: Reason: FALL, PAIN / Spl. Instructions: / History: . TECHNIQUE: AP, bilateral oblique, lateral and coned-down lateral views of the lumbar spine were obtained COMPARISON: 02/08/2020 L-spine x-ray series. FINDINGS: Five lumbar segments are identified. Lumbar vertebral bodies are normal in height and alignment. Disc height is maintained. Pedicles are intact. No fracture or aggressive osseous lesions are identified. Minimal facet hypertrophic change is present in the lower lumbar spine most notably at L4-L5 through L5-S1. Soft tissues show arterial calcifications in the abdominal aorta. The visualized sacroiliac joints and hips are unremarkable. Moderate stool throughout the large bowel also noted. IMPRESSION: No fracture or traumatic malalignment in the lumbar spine is seen. Electronically signed by: Didi Wade MD (04/04/2020 12:27 PM) [id number]
--- NOTE | 2020-04-04 12:36 | EKG ---
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
[2020-04-04] MEDS ORDERED: DEXAMETHASONE 4 MG TABLET PO ONE (12:45)
[2020-04-04] MEDS ORDERED: CEPH-264 PO (13:11)
== END 2020-04-04 13:21 | disposition home or self-care (01) ==
LOC: ER 10:05
DX: G89.11 Acute pain due to trauma (principal); M54.5 Low back pain; R51 Headache; R11.2 Nausea with vomiting, unspecified; F41.9 Anxiety disorder, unspecified; F32.9 Major depressive disorder, single episode, unspecified; E10.9 Type 1 diabetes mellitus without complications; Z90.89 Acquired absence of other organs; Z90.710 Acquired absence of both cervix and uterus; Z98.890 Other specified postprocedural states; W18.39XA Other fall on same level, initial encounter; Y93.89 Activity, other specified; Y92.89 Other specified places as the place of occurrence of the external cause; Y99.8 Other external cause status
CPT/HCPCS: 36415; 70450; 71045; 72072; 72110; 72125; 80053; 81001; 84484; 85025; 85610; 87086; 93005; 96374; 96375; 99285; J2405; J3010

== ENCOUNTER 2020-08-16 10:39 | Emergency (ER) | payer MEDICARE, MEDICAID ==
[~2020-08-16] VITALS: Ht 165.1 cm; Wt 77.2 kg
[~2020-08-16 10:39] MED LIST changes: -AMIO200T4 PO; +AMIO200T6 PO; +CALC200T23 PO; +CEPH-264 PO; +DICY10CA3 PO; +HYDR10TA2 PO; +HYDR12.575 PO; +LACT1CAP19 PO; +LUBI24CA7 PO; +Phenyleph/Mineral Oil/Petrolat RC; +TRAM100C3 PO
[2020-08-16] MEDS ORDERED: ONDANSETRON PF 4 MG/2 ML VIAL. IVP ONE (11:45)
[2020-08-16 11:47] LABS: BASO # 0.1 x10^3/uL (0.0-0.2); BASO % 1 % (0-3); EOS # 0.3 x10^3/uL (0.0-0.7); EOS % 6 % (0-3); HEMATOCRIT 38.8 % (36.0-47.0); LYMPH # 1.6 x10^3/uL (1.0-4.8); LYMPH % 27 % (24-48); MEAN CORPUSCULAR HEMOGLOBIN 30 pg (25-35); MEAN CORPUSCULAR HGB CONC 33 g/dL (31-37); MEAN CORPUSCULAR VOLUME 90 fL (79-100); MONO # 0.5 x10^3/uL (0.0-1.1); MONO % 8 % (0-9); NEUT # 3.3 x10^3/uL (1.8-7.7); NEUT % 58 % (31-73); PLATELET COUNT 149 x10^3/uL (140-400); RED BLOOD COUNT 4.29 x10^6/uL (3.50-5.40); RED CELL DISTRIBUTION WIDTH 13.5 % (11.5-14.5); WHITE BLOOD COUNT 5.7 x10^3/uL (4.0-11.0)
[2020-08-16 11:49] LABS: BILIRUBIN,URINE SMALL (NEG); CLARITY,URINE CLEAR; COLOR,URINE YELLOW; NITRITE,URINE NEGATIVE (NEG); PROTEIN,URINE NEGATIVE (NEG-TRACE)
[2020-08-16 11:56] LABS: CALCIUM 8.8 mg/dL (8.5-10.1); CREATININE 0.9 mg/dL (0.6-1.0); GFR 61.4; POTASSIUM 3.5 mmol/L (3.5-5.1)
[2020-08-16 12:02] LABS: ALBUMIN 3.5 g/dL (3.4-5.0); ALBUMIN/GLOBULIN RATIO 1.3 (1.0-1.7); TOTAL BILIRUBIN 0.8 mg/dL (0.2-1.0); TOTAL PROTEIN 6.3 g/dL (6.4-8.2)
[2020-08-16 12:07] LABS: RBC,URINE 0 /HPF (0-2)
[2020-08-16 12:08] LABS: BACTERIA,URINE MANY /HPF (0-FEW)
[2020-08-16] MEDS ORDERED: MORPHINE SULFATE 4 MG/ML VIAL. IV ONE (12:15)
[2020-08-16] MEDS ORDERED: IOHEXOL 300 MG/ML 100ML VIAL. IV ONE (13:15)
--- NOTE | 2020-08-16 13:15 | EKG ---
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
--- NOTE | 2020-08-16 14:13 | RAD ---
EXAM: Abdomen and pelvis CT with intravenous contrast. HISTORY: Pain. TECHNIQUE: Computed tomographic images of the abdomen and pelvis were obtained following the administ ration of intravenous contrast. Multiplanar reformatting was performed. *One or more of the following individualized dose reduction techniques were utilized for this examina tion: 1. Automated exposure control. 2. Adjustment of the mA and/or kV according to patient size. 3. Use of iterative reconstruction technique. COMPARISON: 04/27/2020. FINDINGS: Evaluation of the lower thorax demonstrates atelectasis and chronic interstitial changes. T he heart is normal in size. There is calcific lesion of the aortic valve, coronary arteries and gris l valve annulus. No focal hepatic lesion is seen. There is a suspected stone within the dependent asp ect of the gallbladder neck. No suspicious pancreatic lesion is seen. There are splenic granulomas. The adrenal glands are unremarkable. There is renal cortical scarring. There is a tiny right renal co rtical cyst. There is no hydronephrosis. The pancreas is of her normal in caliber. There are no secon alisson findings to suggest appendicitis. There is a partially 1.5 cm irregular soft tissue nodule with calcification adjacent to the cecum and terminal ileum. There is an adjacent lymph node measuring 7 m m. There is distal colonic diverticulosis. There is no evidence of diverticulitis. There is no bowel obstruction. The aorta is normal in caliber. There is aortic and aortic branch vessel atherosclerosis. There is no suspicious osseous lesion. There are few benign bone islands. There are stable metallic foreign bodi es within the right lower quadrant. IMPRESSION: 1. Prominent appendix without evidence of appendicitis. The previously demonstrated appendiceal infla mmation on the study performed 09/13/2019 is no longer seen. Note is made that the patient reports a h istory of appendectomy. Correlate with surgical history. 2. Stable 1.5 cm irregular partially calcified soft tissue nodule within the right lower quadrant adj acent to the cecum. The differential includes etiology such as a desmoid tumor, carcinoid tumor as we ll as fat necrosis if there is a history of prior surgery. There is also a stable adjacent lymph node . 3. Colonic diverticulosis. 4. Suspected cholelithiasis. 5. Renal cortical thinning and tiny right renal cyst. Follow-up is not routinely recommended for simp le cysts. Electronically signed by: Astrid Faith MD (08/16/2020 2:10 PM) [id number]
[2020-08-16 14:27] VITALS: BP 144/66
--- NOTE | 2020-08-16 15:07 | PHYS DOC ---
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 Patient denies any nausea vomiting, denies any trouble breathing, no cough, no fever. Patient denies any urinary symptom ,patient said the pain radiates to the back. Patient denies any chest pain. Patient states she feels very anxious. Review of Systems: Review of Systems: Constitutional: Denies fever or chills. [] Eyes: Denies change in visual acuity. [] HENT: Denies nasal congestion or sore throat. [] Respiratory: Denies cough or shortness of breath. [] Cardiovascular: Denies chest pain or edema. [] GI: Positive for left upper quadrant abdominal pain, left flank pain, no nausea vomiting.. [] : Denies dysuria. [] Musculoskeletal: Denies back pain or joint pain. [] Integument: Denies rash. [] Neurologic: Denies headache, focal weakness or sensory changes. [] Endocrine: Denies polyuria or polydipsia. [] Lymphatic: Denies swollen glands. [] Psychiatric: Denies depression or anxiety. [] Heart Score: Risk Factors: Risk Factors: DM, Current or recent (<one month) smoker, HTN, HLP, family histo ry of CAD, obesity. Risk Scores: Score 0 - 3: 2.5% MACE over next 6 weeks - Discharge Home Score 4 - 6: 20.3% MACE over next 6 weeks - Admit for Clinical Observation Score 7 - 10: 72.7% MACE over next 6 weeks - Early Invasive Strategies Current Medications: Current Medications Medications (Trade) Dose Ordered Sig/Jose Start Time Stop Time Status Last Admin Dose Admin Iohexol (Omnipaque 300 Mg/ml) 75 ml 1X ONCE 08/16/20 13:15 08/16/20 13:16 DC 08/16/20 13:15 75 ML Morphine Sulfate (Morphine Sulfate) 4 mg 1X ONCE 08/16/20 12:15 08/16/20 12:16 DC 08/16/20 12:14 4 MG Ondansetron HCl (Zofran) 4 mg 1X ONCE 08/16/20 11:45 08/16/20 11:46 DC 08/16/20 11:59 4 MG Allergies: Allergies: Allergies Coded Allergies Type Severity Reaction Last Updated Verified fenofibrate Allergy Intermediate 04/04/20 Yes gabapentin Allergy Intermediate 04/04/20 Yes lisinopril Allergy Intermediate 04/04/20 Yes promethazine Allergy Intermediate 04/04/20 Yes rosuvastatin Allergy Intermediate 04/04/20 Yes sitagliptin Allergy Intermediate 04/04/20 Yes buspirone Adverse Reaction Intermediate N/V 04/04/20 Yes codeine Adverse Reaction Intermediate N/V 04/04/20 Yes glyburide Adverse Reaction Intermediate EDEMA 04/04/20 Yes propranolol Adverse Reaction Intermediate BRADYCARDIA 04/04/20 Yes Physical Exam: PE: Constitutional: Well developed, well nourished, no acute distress, non-toxic appearance. [] HENT: Normocephalic, atraumatic, bilateral external ears normal, oropharynx moist, no oral exudates, nose normal. [] Eyes: PERRLA, EOMI, conjunctiva normal, no discharge. [] Neck: Normal range of motion, no tenderness, supple, no stridor. [] Cardiovascular:Heart rate regular rhythm, no murmur [] Lungs & Thorax: Bilateral breath sounds clear to auscultation [] Abdomen: Bowel sounds normal, soft, there is left upper quadrant tenderness to palpation, left CVA tender to palpation, no masses, no pulsatile masses. [] Skin: Warm, dry, no erythema, no rash. [] Back: No tenderness, Left CVA tenderness. [] Extremities: No tenderness, no cyanosis, no clubbing, ROM intact, no edema. [] Neurologic: Alert and oriented X 3, normal motor function, normal sensory function, no focal deficits noted. [] Psychologic: Affect normal, judgement normal, mood normal. [] Current Patient Data: Labs: Laboratory Tests Test 08/16/20 11:15 White Blood Count 5.7 x10^3/uL (4.0-11.0) Red Blood Count 4.29 x10^6/uL (3.50-5.40) Hemoglobin 13.0 g/dL (12.0-15.5) Hematocrit 38.8 % (36.0-47.0) Mean Corpuscular Volume 90 fL (79-100) Mean Corpuscular Hemoglobin 30 pg (25-35) Mean Corpuscular Hemoglobin Concent 33 g/dL (31-37) Red Cell Distribution Width 13.5 % (11.5-14.5) Platelet Count 149 x10^3/uL (140-400) Neutrophils (%) (Auto) 58 % (31-73) Lymphocytes (%) (Auto) 27 % (24-48) Monocytes (%) (Auto) 8 % (0-9) Eosinophils (%) (Auto) 6 % (0-3) H Basophils (%) (Auto) 1 % (0-3) Neutrophils # (Auto) 3.3 x10^3/uL (1.8-7.7) Lymphocytes # (Auto) 1.6 x10^3/uL (1.0-4.8) Monocytes # (Auto) 0.5 x10^3/uL (0.0-1.1) Eosinophils # (Auto) 0.3 x10^3/uL (0.0-0.7) Basophils # (Auto) 0.1 x10^3/uL (0.0-0.2) Urine Collection Type Unknown Urine Color Yellow Urine Clarity Clear Urine pH 5.0 (<5.0-8.0) Urine Specific Coleman >=1.030 (1.000-1.030) Urine Protein Negative mg/dL (NEG-TRACE) Urine Glucose (UA) 100 mg/dL (NEG) Urine Ketones (Stick) Negative mg/dL (NEG) Urine Blood Negative (NEG) Urine Nitrite Negative (NEG) Urine Bilirubin Small (NEG) Urine Urobilinogen Dipstick 1.0 mg/dL (0.2 mg/dL) Urine Leukocyte Esterase Small (NEG) Urine RBC 0 /HPF (0-2) Urine WBC 5-10 /HPF (0-4) Urine Squamous Epithelial Cells Many /LPF Urine Bacteria Many /HPF (0-FEW) Urine Mucus Slight /LPF Sodium Level 139 mmol/L (136-145) Potassium Level 3.5 mmol/L (3.5-5.1) Chloride Level 104 mmol/L (98-107) Carbon Dioxide Level 24 mmol/L (21-32) Anion Gap 11 (6-14) Blood Urea Nitrogen 14 mg/dL (7-20) Creatinine 0.9 mg/dL (0.6-1.0) Estimated GFR (Cockcroft-Gault) 61.4 BUN/Creatinine Ratio 16 (6-20) Glucose Level 169 mg/dL (70-99) H Calcium Level 8.8 mg/dL (8.5-10.1) Total Bilirubin 0.8 mg/dL (0.2-1.0) Aspartate Amino Transferase (AST) 34 U/L (15-37) Alanine Aminotransferase (ALT) 41 U/L (14-59) Alkaline Phosphatase 134 U/L (46-116) H Troponin I Quantitative < 0.017 ng/mL (0.000-0.055) Total Protein 6.3 g/dL (6.4-8.2) L Albumin 3.5 g/dL (3.4-5.0) Albumin/Globulin Ratio 1.3 (1.0-1.7) Lipase 86 U/L (73-393) Laboratory Tests 08/16/20 11:15 Laboratory Tests 08/16/20 11:15 Vital Signs: Vital Signs Date Time Temp Pulse Resp B/P (MAP) Pulse Ox O2 Delivery O2 Flow Rate FiO2 08/16/20 12:14 18 97 Room Air 08/16/20 11:57 80 145/67 (93) 08/16/20 10:49 98.2 98.2 EKG: EKG: EKG was done at 1208, heart rate of 67 beats per minutes, normal sinus rhythm, no ST segment elevation. Radiology/Procedures: Radiology/Procedures: [][facility] [address] [place] [address] IMAGING REPORT Signed PATIENT: JUANCARLOS THORPE ACCOUNT: [id number] : 1945 LOCATION: ER AGE: 74 SEX: F EXAM STATUS: REG ER ORD. PHYSICIAN: FAIZAN PHIPPS DO REASON: LEFT SIDE ABDOMINAL PAIN PROCEDURE: CT ABD PELV W/ IV CONTRST ONLY EXAM: Abdomen and pelvis CT with intravenous contrast. HISTORY: Pain. TECHNIQUE: Computed tomographic images of the abdomen and pelvis were obtained following the administration of intravenous contrast. Multiplanar reformatting was performed. *One or more of the following individualized dose reduction techniques were utilized for this examination: 1. Automated exposure control. 2. Adjustment of the mA and/or kV according to patient size. 3. Use of iterative reconstruction technique. COMPARISON: 04/27/2020. FINDINGS: Evaluation of the lower thorax demonstrates atelectasis and chronic interstitial changes. The heart is normal in size. There is calcific lesion of the aortic valve, coronary arteries and mitral valve annulus. No focal hepatic lesion is seen. There is a suspected stone within the dependent aspect of the gallbladder neck. No suspicious pancreatic lesion is seen. There are splenic granulomas. The adrenal glands are unremarkable. There is renal cortical scarring. There is a tiny right renal cortical cyst. There is no hydronephrosis. The pancreas is of her normal in caliber. There are no secondary findings to suggest appendicitis. There is a partially 1.5 cm irregular soft tissue nodule with calcification adjacent to the cecum and terminal ileum. There is an adjacent lymph node measuring 7 mm. There is distal colonic diverticulosis. There is no evidence of diverticulitis. There is no bowel obstruction. The aorta is normal in caliber. There is aortic and aortic branch vessel atherosclerosis. There is no suspicious osseous lesion. There are few benign bon e islands. There are stable metallic foreign bodies within the right lower quadrant. IMPRESSION: 1. Prominent appendix without evidence of appendicitis. The previously demonstrated appendiceal inflammation on the study performed 09/13/2019 is no longer seen. Note is made that the patient reports a history of appendectomy. Correlate with surgical history. 2. Stable 1.5 cm irregular partially calcified soft tissue nodule within the right lower quadrant adjacent to the cecum. The differential includes etiology such as a desmoid tumor, carcinoid tumor as well as fat necrosis if there is a history of prior surgery. There is also a stable adjacent lymph node. 3. Colonic diverticulosis. 4. Suspected cholelithiasis. 5. Renal cortical thinning and tiny right renal cyst. Follow-up is not routinely recommended for simple cysts. Electronically signed by: Astrid Faith MD (08/16/2020 2:10 PM) [id number] DICTATED and SIGNED BY: ASTRID FAITH MD DATE: 08/16/20 [id number] 0 Course & Med Decision Making: Course & Med Decision Making Pertinent Labs and Imaging studies reviewed. (See chart for details) Patient is a 73-year-old female who presented to ER for evaluation of left flank pain, CT scan abdomen and pelvis did not show any acute problem. Patient states she did feel much better. Patient felt like it is her anxiety attack. Dragon Disclaimer: Power Disclaimer: This electronic medical record was generated, in whole or in part, using a voice recognition dictation system. Departure Departure Impression: Primary Impression: Flank pain Disposition: 01 DC HOME SELF CARE/HOMELESS Condition: IMPROVED Referrals: NO PCP (PCP) please follow up with your doctor as needed Patient Instructions: Flank Pain Additional Instructions: Thank you for visiting our Emergency Department. We appreciate you trusting us with your care. If any additional problems come up don't hesitate to return to visit us. Please follow up with your primary care provider so they can plan additional care if needed and know about the problem that you had. If symptoms worsen come back to the Emergency Department. Any concerning symptoms that start such as chest pain, shortness of air, weakness or numbness on one side of the body, running high fevers or any other concerning symptoms return to the ER. FAIZAN PHIPPS DO Aug 16, 2020 15:07
== END 2020-08-16 15:32 | disposition home or self-care (01) ==
LOC: ER 10:39
DX: R10.12 Left upper quadrant pain (principal); I48.20 Chronic atrial fibrillation, unspecified; F32.9 Major depressive disorder, single episode, unspecified; E10.9 Type 1 diabetes mellitus without complications; F41.9 Anxiety disorder, unspecified; Z90.89 Acquired absence of other organs; Z90.710 Acquired absence of both cervix and uterus; Z87.891 Personal history of nicotine dependence; Z98.890 Other specified postprocedural states; Z88.8 Allergy status to other drugs, medicaments and biological substances; Z88.5 Allergy status to narcotic agent
CPT/HCPCS: 36415; 74177; 80053; 81001; 83690; 84484; 85025; 87086; 93005; 96374; 96375; 99285; J2270; J2405; Q9967

== ENCOUNTER 2020-10-24 14:48 | Emergency (ER) | payer MEDICARE, MEDICAID ==
[~2020-10-24] VITALS: Ht 162.6 cm; Wt 81.8 kg
[2020-10-24 15:22] VITALS: BP 135/73
[2020-10-24 16:10] LABS: BASO # 0.1 x10^3/uL (0.0-0.2); BASO % 1 % (0-3); EOS # 0.2 x10^3/uL (0.0-0.7); EOS % 4 % (0-3); HEMATOCRIT 38.7 % (36.0-47.0); HEMOGLOBIN 13.3 g/dL (12.0-15.5); LYMPH # 1.4 x10^3/uL (1.0-4.8); LYMPH % 24 % (24-48); MEAN CORPUSCULAR HEMOGLOBIN 31 pg (25-35); MEAN CORPUSCULAR HGB CONC 35 g/dL (31-37); MEAN CORPUSCULAR VOLUME 90 fL (79-100); MONO # 0.4 x10^3/uL (0.0-1.1); MONO % 8 % (0-9); NEUT # 3.5 x10^3/uL (1.8-7.7); NEUT % 63 % (31-73); PLATELET COUNT 142 x10^3/uL (140-400); RED BLOOD COUNT 4.28 x10^6/uL (3.50-5.40); RED CELL DISTRIBUTION WIDTH 12.7 % (11.5-14.5); WHITE BLOOD COUNT 5.6 x10^3/uL (4.0-11.0)
[2020-10-24 16:24] LABS: CALCIUM 8.5 mg/dL (8.5-10.1); CREATININE 1.2 mg/dL (0.6-1.0); POTASSIUM 3.4 mmol/L (3.5-5.1)
[2020-10-24] MEDS ORDERED: MORPHINE SULFATE 10 MG/ML VIAL. IV ONE (16:30)
--- NOTE | 2020-10-24 16:32 | RAD ---
XR CHEST 1V CLINICAL INDICATIONS: Chest pain COMPARISON: April 04, 2020. Findings: Old granulomatous disease is evident. Elevation of the right hemidiaphragm is unchanged. No acute lung infiltrate or pleural effusion or pulmonary edema or lung mass or pneumothorax is seen. The heart size, pulmonary vasculature, mediastinum and both donald are unremarkable. IMPRESSION: No acute radiographic abnormality is seen. Electronically signed by: Mati Kidd MD (10/24/2020 4:30 PM) [id number]
--- NOTE | 2020-10-24 16:42 | EKG ---
[facility] [address] [place] [address] Test Date: 2020-10-24 Test Time: 15:24:00 Pat Name: JUANCARLOS THORPE Department: Room: Gender: F [place]: [place] : 1945 Requested By: ADELA FAUSTIN Order Number: [id number] Reading MD: Measurements Intervals [place] Rate: 95 P: 90 DE: 154 QRS: -8 QRSD: 102 T: 36 QT: 376 QTc: 476 Interpretive Statements SINUS RHYTHM LEFTWARD AXIS PROLONGED QT NO SPECIFIC ECG ABNORMALITIES RI6.02 No previous ECG available for comparison
[2020-10-24] MEDS ORDERED: HYDR25TA PO (17:27)
--- NOTE | 2020-10-24 17:27 | ED.ADGEN ---
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 Patient states she is unsure if this is anxiety or something else. She states that she feels anxious and is fatigued. She denies any, diaphoresis. She has not had any cough, URI symptoms, fever, chills, sweats. She states the pain feels like an achy pressure-like pain. She does not try to take anything for her pain at home. Nothing seems to make it better or worse. She is requesting something for anxiety. Review of Systems: Review of Systems: Complete ROS is negative unless otherwise documented in HPI Current Medications: Current Medications Medications (Trade) Dose Ordered Sig/Jose Start Time Stop Time Status Last Admin Dose Admin Morphine Sulfate (Morphine Sulfate) 5 mg 1X ONCE 10/24/20 16:30 10/24/20 16:31 DC 10/24/20 16:37 5 MG Allergies: Allergies: Allergies Coded Allergies Type Severity Reaction Last Updated Verified fenofibrate Allergy Intermediate 04/04/20 Yes gabapentin Allergy Intermediate 04/04/20 Yes lisinopril Allergy Intermediate 04/04/20 Yes promethazine Allergy Intermediate 04/04/20 Yes rosuvastatin Allergy Intermediate 04/04/20 Yes sitagliptin Allergy Intermediate 04/04/20 Yes buspirone Adverse Reaction Intermediate N/V 04/04/20 Yes codeine Adverse Reaction Intermediate N/V 04/04/20 Yes glyburide Adverse Reaction Intermediate EDEMA 04/04/20 Yes propranolol Adverse Reaction Intermediate BRADYCARDIA 04/04/20 Yes Physical Exam: PE: General: Awake, alert, NAD. Well Nourished, well hydrated. Cooperative HEENT: Atraumatic, EOMI, PERRL, airway patent, moist oral mucosa Neck: Supple, trachea midline Respiratory: CTA bilaterally, normal effort, no wheezing/crackles CV: RRR, no murmur, cap refill <2 GI: Soft, nondistended, nontender, no masses MSK: No obvious deformities Skin: Warm, dry, intact Neuro: A&O x3, stuttering speech, tremor, sensory and motor grossly intact, no focal deficits Psych: Normal affect, normal mood, not suicidal or homicidal Current Patient Data: Labs: Laboratory Tests Test 10/24/20 15:55 White Blood Count 5.6 x10^3/uL (4.0-11.0) Red Blood Count 4.28 x10^6/uL (3.50-5.40) Hemoglobin 13.3 g/dL (12.0-15.5) Hematocrit 38.7 % (36.0-47.0) Mean Corpuscular Volume 90 fL (79-100) Mean Corpuscular Hemoglobin 31 pg (25-35) Mean Corpuscular Hemoglobin Concent 35 g/dL (31-37) Red Cell Distribution Width 12.7 % (11.5-14.5) Platelet Count 142 x10^3/uL (140-400) Neutrophils (%) (Auto) 63 % (31-73) Lymphocytes (%) (Auto) 24 % (24-48) Monocytes (%) (Auto) 8 % (0-9) Eosinophils (%) (Auto) 4 % (0-3) H Basophils (%) (Auto) 1 % (0-3) Neutrophils # (Auto) 3.5 x10^3/uL (1.8-7.7) Lymphocytes # (Auto) 1.4 x10^3/uL (1.0-4.8) Monocytes # (Auto) 0.4 x10^3/uL (0.0-1.1) Eosinophils # (Auto) 0.2 x10^3/uL (0.0-0.7) Basophils # (Auto) 0.1 x10^3/uL (0.0-0.2) Sodium Level 143 mmol/L (136-145) Potassium Level 3.4 mmol/L (3.5-5.1) L Chloride Level 104 mmol/L (98-107) Carbon Dioxide Level 30 mmol/L (21-32) Anion Gap 9 (6-14) Blood Urea Nitrogen 16 mg/dL (7-20) Creatinine 1.2 mg/dL (0.6-1.0) H Estimated GFR (Cockcroft-Gault) 44.0 Glucose Level 193 mg/dL (70-99) H Calcium Level 8.5 mg/dL (8.5-10.1) Troponin I Quantitative < 0.017 ng/mL (0.000-0.055) Laboratory Tests 10/24/20 15:55 Laboratory Tests 10/24/20 15:55 Vital Signs: Vital Signs Date Time Temp Pulse Resp B/P (MAP) Pulse Ox O2 Delivery O2 Flow Rate FiO2 10/24/20 15:22 98.1 93 20 135/73 (93) 95 Room Air 98.1 EKG: EKG: [] Heart Score: C/O Chest Pain: Yes HEART Score for Chest Pain: HEART Score for Chest Pain Response (Comments) Value History Slighlty/Non-Suspicious 0 ECG Normal 0 Age > 65 2 Risk Factors 1 or 2 Risk Factors 1 Troponin < Normal Limit 0 Total 3 Risk Factors: Risk Factors: DM, Current or recent (<one month) smoker, HTN, HLP, family history of CAD, obesity. Risk Scores: Score 0 - 3: 2.5% MACE over next 6 weeks - Discharge Home Score 4 - 6: 20.3% MACE over next 6 weeks - Admit for Clinical Observation Score 7 - 10: 72.7% MACE over next 6 weeks - Early Invasive Strategies Radiology/Procedures: Radiology/Procedures: [] Course & Med Decision Making: Course & Med Decision Making Pertinent Labs and Imaging studies reviewed. (See chart for details) Patient is 74-year-old female who presents to the emergency room complaining of constant chest pain and mild shortness of breath that has been ongoing for the last 10 hours. Patient has a Wells score of 0. This does not sound like a pulmonary embolism. Heart rate is normal and patient is not hypoxic. Chest x- ray was ordered to rule out a widened mediastinum, pneumothorax, pneumonia and was normal. Lab work was ordered to rule out anemia, electrolyte changes, elevated troponin. Lab work is unremarkable. Patient does not need a delta t roponin as her pain has been constant for 10 hours. I did offer her admission for cardiac evaluation and patient declines. She states that she would like to go home and follow-up with her primary care physician. She promises to return to the emergency room if her pain comes back. Patient's test results and vitals while in the ED were fully reviewed and discussed with the patient. Patient is stable and at this time does not need admission to the hospital. We have discussed strict return precautions and the importance of following up with their Primary Care Physician. Patient stated understanding and was given an opportunity to ask any questions. Patient is in agreement with plan. Power Disclaimer: Power Disclaimer: This electronic medical record was generated, in whole or in part, using a voice recognition dictation system. Departure Departure Impression: Primary Impression: Chest pain Additional Impression: Anxiety Disposition: 01 DC HOME SELF CARE/HOMELESS Condition: IMPROVED Referrals: UNKNOWN PCP NAME (PCP) Patient Instructions: Anxiety and Panic Attacks, Chest Pain (Nonspecific) Scripts Albuterol Sulfate (VENTOLIN HFA INHALER) 18 Gm Hfa.aer.ad 2 PUFF INH QID for FOR ASTHMA, #1 INHALER 0 Refills Prov: ADELA FAUSTIN MD 10/24/20 Lorazepam (ATIVAN) 0.5 Mg Tablet 0.5 MG PO DAILY PRN for ANXIETY / AGITATION for 7 Days, #7 TAB Prov: ADELA FAUSTIN MD 10/24/20 Hydroxyzine Hcl (HYDROXYZINE HCL) 25 Mg Tablet 1 TAB PO TID PRN for ANXIETY, #30 TAB Prov: ADELA FAUSTIN MD 10/24/20 Problem Qualifiers ADELA FAUSTIN MD Oct 24, 2020 17:27
[2020-10-24] MEDS ORDERED: LORA0.5T96 PO (18:07)
[2020-10-24] MEDS ORDERED: VENTOLIN HFA18 GM INH (18:07)
== END 2020-10-24 17:57 | disposition home or self-care (01) ==
LOC: ER 14:48
DX: R07.89 Other chest pain (principal); F41.9 Anxiety disorder, unspecified; R06.02 Shortness of breath; R53.83 Other fatigue; I48.20 Chronic atrial fibrillation, unspecified; F32.9 Major depressive disorder, single episode, unspecified; E10.9 Type 1 diabetes mellitus without complications; Z90.89 Acquired absence of other organs; Z90.710 Acquired absence of both cervix and uterus; Z98.890 Other specified postprocedural states; Z87.891 Personal history of nicotine dependence; Z88.5 Allergy status to narcotic agent; Z88.8 Allergy status to other drugs, medicaments and biological substances; Z88.6 Allergy status to analgesic agent
CPT/HCPCS: 36415; 71045; 80048; 84484; 85025; 93005; 96374; 99285; J2270

== ENCOUNTER 2021-02-04 10:45 | Emergency (ER) | payer MEDICARE, MEDICAID ==
[~2021-02-04] VITALS: Ht 165.1 cm; Wt 75.0 kg
[~2021-02-04 10:45] MED LIST changes: +HYDR25TA PO; +LORA0.5T96 PO; +VENTOLIN HFA18 GM INH
[2021-02-04 12:36] LABS: BASO % 1 % (0-3); EOS # 0.3 x10^3/uL (0.0-0.7); EOS % 4 % (0-3); HEMATOCRIT 41.2 % (36.0-47.0); HEMOGLOBIN 13.9 g/dL (12.0-15.5); LYMPH # 1.8 x10^3/uL (1.0-4.8); LYMPH % 25 % (24-48); MEAN CORPUSCULAR HEMOGLOBIN 30 pg (25-35); MEAN CORPUSCULAR HGB CONC 34 g/dL (31-37); MEAN CORPUSCULAR VOLUME 90 fL (79-100); MONO # 0.6 x10^3/uL (0.0-1.1); MONO % 8 % (0-9); NEUT # 4.5 x10^3/uL (1.8-7.7); NEUT % 62 % (31-73); PLATELET COUNT 128 x10^3/uL (140-400); RED BLOOD COUNT 4.57 x10^6/uL (3.50-5.40); RED CELL DISTRIBUTION WIDTH 13.2 % (11.5-14.5); WHITE BLOOD COUNT 7.3 x10^3/uL (4.0-11.0)
--- NOTE | 2021-02-04 12:36 | RAD ---
Exam: CT abdomen/pelvis without intravenous contrast Indication: Flank pain Comparison: CT abdomen pelvis 08/16/2020 Technique: Helical CT imaging performed of the abdomen and pelvis without the use of intravenous cont rast. Sagittal and coronal reformats were obtained. One or more of the following individualized dose reduction techniques were utilized for this examinat ion: 1. Automated exposure control 2. Adjustment of the mA and/or kV according to patient size 3. Use of iterative reconstruction technique. Findings: Inherently limited evaluation without intravenous contrast. Lower chest: Lung bases are clear. Heart is normal in size. There are coronary artery calcifications. Liver: Unremarkable noncontrast liver. Gallbladder/Biliary Tree: Normal. Pancreas: Normal. Spleen: No splenomegaly. There are calcified splenic granulomas. Adrenal Glands: Normal. Kidneys/Ureters/Bladder: Kidneys are normal in size. No nephrolithiasis or hydronephrosis. Ureters an d bladder are unremarkable. Reproductive Organs: Uterus is surgically absent. No adnexal mass. Stomach, small bowel, and colon: Stomach is normal. The distal ileum is mildly distended measuring up to 3.9 cm and contains fecal material, new from prior exam. There is mild wall thickening and surrou nding inflammation of the distal small bowel. The terminal ileum is narrowed, similar to prior exam. The more proximal small bowel is normal in appearance. The appendix is present and normal in caliber measuring 5 mm. There is a soft tissue nodule at the tip of the appendix, likely a lymph node. This i s unchanged from 08/16/2020. The colon is normal. No pneumatosis. Vasculature: Abdominal aorta is normal in caliber. There is moderate calcified aortic atherosclerosis . Lymph Nodes: Small mesenteric lymph nodes in the right lower quadrant. Peritoneum and retroperitoneum: There is mild mesenteric edema along the abnormal bowel in the anteri or pelvis. No free fluid or free air. Bones: There is moderate disc space narrowing at L5-S1. No acute osseous abnormality. Impression: 1. Abnormal appearance of distal ileum consistent with enteritis. 2. A 1.5 cm partially calcified soft tissue mass and small adjacent lymph node near the terminal ile um are unchanged. 3. The appendix is present and unchanged in appearance. Probable lymph node at the tip of the append ix is unchanged. Electronically signed by: Simona Sheth MD (02/04/2021 12:33 PM) [id number]
[2021-02-04 12:44] LABS: CALCIUM 8.7 mg/dL (8.5-10.1); CREATININE 1.1 mg/dL (0.6-1.0); GFR 48.6; POTASSIUM 3.5 mmol/L (3.5-5.1)
[2021-02-04 12:48] LABS: BILIRUBIN,URINE NEGATIVE (NEG); CLARITY,URINE CLEAR; COLOR,URINE YELLOW; NITRITE,URINE NEGATIVE (NEG); PH,URINE 5.5 (<5.0-8.0); PROTEIN,URINE NEGATIVE (NEG-TRACE); UROBILINOGEN,URINE 0.2 mg/dL (0.2 mg/dL)
[2021-02-04 12:49] LABS: ALBUMIN 3.5 g/dL (3.4-5.0); ALBUMIN/GLOBULIN RATIO 1.1 (1.0-1.7); TOTAL BILIRUBIN 0.8 mg/dL (0.2-1.0); TOTAL PROTEIN 6.6 g/dL (6.4-8.2)
[2021-02-04 13:17] LABS: BACTERIA,URINE FEW /HPF (0-FEW); RBC,URINE OCC /HPF (0-2)
[2021-02-04] MEDS ORDERED: metroNIDAZOLE 500 MG TABLET PO ONE (14:15)
[2021-02-04] MEDS ORDERED: CIPROFLOXACIN HCL 250 MG TABLET. PO ONE (14:15)
--- NOTE | 2021-02-04 14:48 | PHYS DOC ---
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 fib, anxiety, diabetes type 2, depression, who presents to the ED today complaining of 10 out of 10 right- sided abdominal pain, symptoms began yesterday, she states symptoms have been getting progressively worse this morning. Denies any vomiting or diarrhea. Patient denies anything specifically exacerbating or relieving her symptoms. Review of Systems: Review of Systems: Constitutional: Denies fever or chills. [] Eyes: Denies change in visual acuity. [] HENT: Denies nasal congestion or sore throat. [] Respiratory: Denies cough or shortness of breath. [] Cardiovascular: Denies chest pain or edema. [] GI: Reports right-sided abdominal pain, denies nausea, vomiting, bloody stools or diarrhea. [] : Denies dysuria. [] Musculoskeletal: Denies back pain or joint pain. [] Integument: Denies rash. [] Neurologic: Denies headache, focal weakness or sensory changes. [] Psychiatric: Denies depression or anxiety. [] Heart Score: C/O Chest Pain: N/A Risk Factors: Risk Factors: DM, Current or recent (<one month) smoker, HTN, HLP, family history of CAD, obesity. Risk Scores: Score 0 - 3: 2.5% MACE over next 6 weeks - Discharge Home Score 4 - 6: 20.3% MACE over next 6 weeks - Admit for Clinical Observation Score 7 - 10: 72.7% MACE over next 6 weeks - Early Invasive Strategies Current Medications: Current Medications Medications (Trade) Dose Ordered Sig/Jose Start Time Stop Time Status Last Admin Dose Admin Ciprofloxacin (Cipro) 500 mg 1X ONCE 02/04/21 14:15 02/04/21 14:16 DC Metronidazole (Flagyl) 500 mg 1X ONCE 02/04/21 14:15 02/04/21 14:16 DC Allergies: Allergies: Allergies Coded Allergies Type Severity Reaction Last Updated Verified fenofibrate Allergy Intermediate 04/04/20 Yes gabapentin Allergy Intermediate 04/04/20 Yes lisinopril Allergy Intermediate 04/04/20 Yes promethazine Allergy Intermediate 04/04/20 Yes rosuvastatin Allergy Intermediate 04/04/20 Yes sitagliptin Allergy Intermediate 04/04/20 Yes buspirone Adverse Reaction Intermediate N/V 04/04/20 Yes codeine Adverse Reaction Intermediate N/V 04/04/20 Yes glyburide Adverse Reaction Intermediate EDEMA 04/04/20 Yes propranolol Adverse Reaction Intermediate BRADYCARDIA 04/04/20 Yes Physical Exam: PE: Constitutional: Well developed, well nourished, no acute distress, non-toxic appearance. [] HENT: Normocephalic, atraumatic, bilateral external ears normal, oropharynx moist, no oral exudates, nose normal. [] Eyes: PERRLA, EOMI, conjunctiva normal, no discharge. [] Neck: Normal range of motion, no tenderness, supple, no stridor. [] Cardiovascular:Heart rate regular rhythm, no murmur [] Lungs & Thorax: Bilateral breath sounds clear to auscultation [] Abdomen: Bowel sounds normal, soft, no tenderness, no masses, no pulsatile masses. [] Skin: Warm, dry, no erythema, no rash. [] Back: No tenderness, no CVA tenderness. [] Extremities: No tenderness, no cyanosis, no clubbing, ROM intact, no edema. [] Neurologic: Alert and oriented X 3, normal motor function, normal sensory function, no focal deficits noted. [] Psychologic: Flat affect Current Patient Data: Labs: Laboratory Tests Test 02/04/21 11:29 02/04/21 12:03 White Blood Count 7.3 x10^3/uL (4.0-11.0) Red Blood Count 4.57 x10^6/uL (3.50-5.40) Hemoglobin 13.9 g/dL (12.0-15.5) Hematocrit 41.2 % (36.0-47.0) Mean Corpuscular Volume 90 fL (79-100) Mean Corpuscular Hemoglobin 30 pg (25-35) Mean Corpuscular Hemoglobin Concent 34 g/dL (31-37) Red Cell Distribution Width 13.2 % (11.5-14.5) Platelet Count 128 x10^3/uL (140-400) L Neutrophils (%) (Auto) 62 % (31-73) Lymphocytes (%) (Auto) 25 % (24-48) Monocytes (%) (Auto) 8 % (0-9) Eosinophils (%) (Auto) 4 % (0-3) H Basophils (%) (Auto) 1 % (0-3) Neutrophils # (Auto) 4.5 x10^3/uL (1.8-7.7) Lymphocytes # (Auto) 1.8 x10^3/uL (1.0-4.8) Monocytes # (Auto) 0.6 x10^3/uL (0.0-1.1) Eosinophils # (Auto) 0.3 x10^3/uL (0.0-0.7) Basophils # (Auto) 0.0 x10^3/uL (0.0-0.2) Sodium Level 141 mmol/L (136-145) Potassium Level 3.5 mmol/L (3.5-5.1) Chloride Level 104 mmol/L (98-107) Carbon Dioxide Level 30 mmol/L (21-32) Anion Gap 7 (6-14) Blood Urea Nitrogen 17 mg/dL (7-20) Creatinine 1.1 mg/dL (0.6-1.0) H Estimated GFR (Cockcroft-Gault) 48.6 BUN/Creatinine Ratio 15 (6-20) Glucose Level 106 mg/dL (70-99) H Calcium Level 8.7 mg/dL (8.5-10.1) Total Bilirubin 0.8 mg/dL (0.2-1.0) Aspartate Amino Transferase (AST) 47 U/L (15-37) H Alanine Aminotransferase (ALT) 41 U/L (14-59) Alkaline Phosphatase 170 U/L (46-116) H Total Protein 6.6 g/dL (6.4-8.2) Albumin 3.5 g/dL (3.4-5.0) Albumin/Globulin Ratio 1.1 (1.0-1.7) Lipase 63 U/L (73-393) L Urine Collection Type Void Urine Color Yellow Urine Clarity Clear Urine pH 5.5 (<5.0-8.0) Urine Specific Harrold 1.025 (1.000-1.030) Urine Protein Negative mg/dL (NEG-TRACE) Urine Glucose (UA) Negative mg/dL (NEG) Urine Ketones (Stick) Negative mg/dL (NEG) Urine Blood Negative (NEG) Urine Nitrite Negative (NEG) Urine Bilirubin Negative (NEG) Urine Urobilinogen Dipstick 0.2 mg/dL (0.2 mg/dL) Urine Leukocyte Esterase Moderate (NEG) Urine RBC Occ /HPF (0-2) Urine WBC 11-20 /HPF (0-4) Urine Squamous Epithelial Cells Many /LPF Urine Bacteria Few /HPF (0-FEW) Urine Mucus Marked /LPF Laboratory Tests 02/04/21 11:29 Laboratory Tests 02/04/21 11:29 Vital Signs: Vital Signs Date Time Temp Pulse Resp B/P (MAP) Pulse Ox O2 Delivery O2 Flow Rate FiO2 02/04/21 11:10 98.2 87 16 137/86 (93) 97 Room Air 98.2 EKG: EKG: [] Radiology/Procedures: Radiology/Procedures: []REASON: flank pain PROCEDURE: CT ABDOMEN PELVIS WO CONTRAST Exam: CT abdomen/pelvis without intravenous contrast Indication: Flank pain Comparison: CT abdomen pelvis 08/16/2020 Technique: Helical CT imaging performed of the abdomen and pelvis without the use of intravenous contrast. Sagittal and coronal reformats were obtained. One or more of the following individualized dose reduction techniques were utilized for this examination: 1. Automated exposure control 2. Adjustment of the mA and/or kV according to patient size 3. Use of iterative reconstruction technique. Findings: Inherently limited evaluation without intravenous contrast. Lower chest: Lung bases are clear. Heart is normal in size. There are coronary artery calcifications. Liver: Unremarkable noncontrast liver. Gallbladder/Biliary Tree: Normal. Pancreas: Normal. Spleen: No splenomegaly. There are calcified splenic granulomas. Adrenal Glands: Normal. Kidneys/Ureters/Bladder: Kidneys are normal in size. No nephrolithiasis or hydronephrosis. Ureters and bladder are unremarkable. Reproductive Organs: Uterus is surgically absent. No adnexal mass. Stomach, small bowel, and colon: Stomach is normal. The distal ileum is mildly distended measuring up to 3.9 cm and contains fecal material, new from prior exam. There is mild wall thickening and surrounding inflammation of the distal small bowel. The terminal ileum is narrowed, similar to prior exam. The more proximal small bowel is normal in appearance. The appendix is present and normal in caliber measuring 5 mm. There is a soft tissue nodule at the tip of the appendix, likely a lymph node. This is unchanged from 08/16/2020. The colon is normal. No pneumatosis. Vasculature: Abdominal aorta is normal in caliber. There is moderate calcified aortic atherosclerosis. Lymph Nodes: Small mesenteric lymph nodes in the right lower quadrant. Peritoneum and retroperitoneum: There is mild mesenteric edema along the abnormal bowel in the anterior pelvis. No free fluid or free air. Bones: There is moderate disc space narrowing at L5-S1. No acute osseous abnormality. Impression: 1. Abnormal appearance of distal ileum consistent with enteritis. 2. A 1.5 cm partially calcified soft tissue mass and small adjacent lymph node near the terminal ileum are unchanged. 3. The appendix is present and unchanged in appearance. Probable lymph node at the tip of the appendix is unchanged. Electronically signed by: Simona Sheth MD (02/04/2021 12:33 PM) [id number] DICTATED and SIGNED BY: SIMONA SHTEH MD DATE: 02/04/21 [id number] 0 Course & Med Decision Making: Course & Med Decision Making Pertinent Labs and Imaging studies reviewed. (See chart for details) This is a 75-year-old female patient presented to the ED today complaining of right-sided abdominal pain, symptoms began yesterday. CBC CMP with no acute findings, positive for UTI, CT of the abdomen and pelvic was negative for appendicitis, noted for enteritis. Patient was started on Cipro and Flagyl. Discharge to home. Follow-up with PCP and GI in a week Power Disclaimer: Power Disclaimer: This electronic medical record was generated, in whole or in part, using a voice recognition dictation system. Departure Departure Impression: Primary Impression: Urinary tract infection Qualified Codes: N39.0 - Urinary tract infection, site not specified Additional Impression: Enteritis Disposition: HOME / SELF CARE / HOMELESS Condition: STABLE Referrals: UNKNOWN PCP NAME (PCP) follow up with your doctor in 1 week NITHYA BROWNING MD follow up in one week Patient Instructions: Urinary Tract Infection, Viral Gastroenteritis, [id number] Additional Instructions: You were evaluated in the emergency room and noted to have urinary tract infection and enteritis. Please take the prescribed antibiotics until completed. Push fluids. Follow-up with your doctor next week Scripts Dicyclomine Hcl (DICYCLOMINE HCL) 20 Mg Tablet 1 TAB PO TID, #30 TAB 1 Refill Prov: ELIAN MOYA APRN 02/04/21 Metronidazole (FLAGYL) 500 Mg Tablet 500 MG PO TID, #21 TAB Prov: ELIAN MOYA APRN 02/04/21 Ciprofloxacin Hcl (CIPRO) 500 Mg Tablet 1 TAB PO BID for 7 Days, #14 TAB 0 Refills Prov: ELIAN MOAY APRN 02/04/21 ELIAN MOYA APRN Feb 04, 2021 14:48
[2021-02-04] MEDS ORDERED: fentaNYL PF VIAL 100 MCG/2 ML VIAL ONE (14:50)
[2021-02-04] MEDS ORDERED: METR500T PO (14:55)
[2021-02-04] MEDS ORDERED: DICY20TA3 PO (14:55)
[2021-02-04] MEDS ORDERED: CIPR500T94 PO (14:55)
[2021-02-04] MEDS ORDERED: fentaNYL PF VIAL 100 MCG/2 ML VIAL IVP ONE (15:00)
[2021-02-04 15:30] VITALS: BP 150/78
== END 2021-02-04 15:40 | disposition home or self-care (01) ==
LOC: ER 10:45
DX: N39.0 Urinary tract infection, site not specified (principal); K52.9 Noninfective gastroenteritis and colitis, unspecified; I48.91 Unspecified atrial fibrillation; E11.9 Type 2 diabetes mellitus without complications; Z87.891 Personal history of nicotine dependence; Z90.89 Acquired absence of other organs; Z90.710 Acquired absence of both cervix and uterus; Z88.4 Allergy status to anesthetic agent; Z88.5 Allergy status to narcotic agent; Z88.6 Allergy status to analgesic agent; Z88.8 Allergy status to other drugs, medicaments and biological substances
CPT/HCPCS: 36415; 74176; 80053; 81001; 83690; 85025; 87086; 96374; 99285; J3010

== ENCOUNTER 2021-05-04 12:23 | Emergency (ER) | payer MEDICARE, MEDICAID ==
[~2021-05-04] VITALS: Ht 165.1 cm; Wt 78.0 kg
[~2021-05-04 12:23] MED LIST changes: +CIPR500T94 PO; +DICY20TA3 PO; +METR500T PO
[2021-05-04 12:49] VITALS: BP 110/58
[2021-05-04] MEDS ORDERED: CIPR10DR EACH EAR (13:12)
--- NOTE | 2021-05-04 13:14 | PHYS DOC ---
Past Medical History Past Medical History: A-Fib, Anxiety, Depression, Diabetes-Type I, Other Additional Past Medical Histor: essential tremors,SPEECH PROBLEMS Past Surgical History: Appendectomy, Hysterectomy, Other Additional Past Surgical Histo: exploratory lap Smoking Status: Never Smoker Alcohol Use: None General Adult EDM: Chief Complaint: EARACHE/EAR PAIN HPI: HPI: Patient is a 75-year-old female that today that presents with left ear pain, patient states pain started 3 days ago, patient states that she tried to clean out her ears and had increased pain after that. Patient does complain of nasal congestion no cough. Patient denies drainage from ears. Review of Systems: Review of Systems: Constitutional: Denies fever or chills. [] Eyes: Denies change in visual acuity. [] HENT: nasal drainage, bilateral ear pain with left worse then right Respiratory: Denies cough or shortness of breath. [] Cardiovascular: Denies chest pain or edema. [] GI: Denies abdominal pain, nausea, vomiting, bloody stools or diarrhea. [] : Denies dysuria. [] Musculoskeletal: Denies back pain or joint pain. [] Integument: Denies rash. [] Neurologic: Denies headache, focal weakness or sensory changes. [] Endocrine: Denies polyuria or polydipsia. [] Lymphatic: Denies swollen glands. [] Psychiatric: Denies depression or anxiety. [] Heart Score: C/O Chest Pain: N/A Risk Factors: Risk Factors: DM, Current or recent (<one month) smoker, HTN, HLP, family history of CAD, obesity. Risk Scores: Score 0 - 3: 2.5% MACE over next 6 weeks - Discharge Home Score 4 - 6: 20.3% MACE over next 6 weeks - Admit for Clinical Observation Score 7 - 10: 72.7% MACE over next 6 weeks - Early Invasive Strategies Allergies: Allergies: Allergies Coded Allergies Type Severity Reaction Last Updated Verified fenofibrate Allergy Intermediate 04/04/20 Yes gabapentin Allergy Intermediate 04/04/20 Yes lisinopril Allergy Intermediate 04/04/20 Yes promethazine Allergy Intermediate 04/04/20 Yes rosuvastatin Allergy Intermediate 04/04/20 Yes sitagliptin Allergy Intermediate 04/04/20 Yes buspirone Adverse Reaction Intermediate N/V 04/04/20 Yes codeine Adverse Reaction Intermediate N/V 04/04/20 Yes glyburide Adverse Reaction Intermediate EDEMA 04/04/20 Yes propranolol Adverse Reaction Intermediate BRADYCARDIA 04/04/20 Yes Physical Exam: PE: Constitutional: Well developed, well nourished, no acute distress, non-toxic appearance. [] HENT: Normocephalic, atraumatic, ear canal shows abrasions to canal, TM bulging billateral, light reflex noted bilaterally, moderate amount of ear wax noted in right ear, nasal congestion noted with nares red. eyes: PERRLA, EOMI, conjunctiva normal, no discharge. [] Neck: Normal range of motion, no tenderness, supple, no stridor. [] Cardiovascular:Heart rate regular rhythm, no murmur [] Lungs & Thorax: Bilateral breath sounds clear to auscultation [] Abdomen: Bowel sounds normal, soft, no tenderness, no masses, no pulsatile masses. [] Skin: Warm, dry, no erythema, no rash. [] Back: No tenderness, no CVA tenderness. [] Extremities: No tenderness, no cyanosis, no clubbing, ROM intact, no edema. [] Neurologic: Alert and oriented X 3, normal motor function, normal sensory function, no focal deficits noted. [] Psychologic: Affect normal, judgement normal, mood normal. [] EKG: EKG: [] Radiology/Procedures: Radiology/Procedures: [] Course & Med Decision Making: Course & Med Decision Making Pertinent Labs and Imaging studies reviewed. (See chart for details) Examination completed. Patient instructed not to put anything in the ear, due to potential injury to eardrum. Patient verbalized understanding of this. Encourage patient to use [id number] Flonase or generic for ear pain, [id number] Mucinex. Will have patient use otic eardrops 4 drops twice daily into bilateral ears for 7 full days. follow up with PCP in 2-3 days [] Power Disclaimer: Power Disclaimer: This electronic medical record was generated, in whole or in part, using a voice recognition dictation system. Departure Departure Impression: Primary Impression: Otitis externa Qualified Codes: H60.503 - Unspecified acute noninfective otitis externa, bilateral Additional Impression: Ear pain Qualified Codes: H92.03 - Otalgia, bilateral Disposition: 01 HOME / SELF CARE / HOMELESS Condition: STABLE Referrals: UNKNOWN PCP NAME (PCP) Patient Instructions: Allergic Rhinitis, Otitis Externa Additional Instructions: Use Ear drop twice daily 4 drops for the next 7 days. Use over the counter Muclinex or Flonase for ear pain. Follow up with [facility] next week for follow up. Scripts Ciprofloxacin/Hydrocortisone (CIPRO HC OTIC SUSPENSION) 10 Ml Drops.susp 4 DROP EACH EAR BID for external ear infection for 7 Days, #10 ML Prov: GAURANG FELICIANO OB/GYN 05/04/21 GAURANG FELCIIANO OB/GYN May 04, 2021 13:14
== END 2021-05-04 14:05 | disposition home or self-care (01) ==
LOC: ER 12:23
DX: H60.503 Unspecified acute noninfective otitis externa, bilateral (principal); I48.91 Unspecified atrial fibrillation; E10.9 Type 1 diabetes mellitus without complications; Z88.8 Allergy status to other drugs, medicaments and biological substances
CPT/HCPCS: 99283

== ENCOUNTER 2021-08-17 20:51 | Emergency (ER) | payer MEDICAID, MEDICARE ==
[~2021-08-17] VITALS: Ht 165.1 cm; Wt 77.2 kg
[~2021-08-17 20:51] MED LIST changes: +AMIO200T53 PO; -AMIO200T6 PO; +CIPR10DR EACH EAR; +CLAR500T8 PO; +DICY20TA PO; -DICY20TA3 PO; +OMEP40CA7 PO
[2021-08-17 22:32] VITALS: BP 146/70
--- NOTE | 2021-08-17 22:50 | RAD ---
Exam: Chest one view INDICATION: Covid concern TECHNIQUE: Frontal view of the chest Comparisons: 08/08/2021 FINDINGS: The cardiomediastinal silhouette and pulmonary vessels are within normal limits. The lung and pleural spaces are clear. IMPRESSION: No acute cardiopulmonary process. Electronically signed by: Jimmy Lynne MD (08/17/2021 10:47 PM) PAULINE
[2021-08-17 23:04] LABS: INFLUENZA A PATIENT NEGATIVE (NEGATIVE); INFLUENZA B PATIENT NEGATIVE (NEGATIVE)
--- NOTE | 2021-08-17 23:37 | PHYS DOC ---
Past Medical History Past Medical History: A-Fib, Anxiety, Depression, Diabetes-Type I, Other Additional Past Medical Histor: essential tremors,SPEECH PROBLEMS Past Surgical History: Appendectomy, Hysterectomy, Other Additional Past Surgical Histo: exploratory lap Smoking Status: Never Smoker Alcohol Use: None General Adult EDM: Chief Complaint: FLU SYMPTOM HPI: HPI: Patient is a 75 year old female who presents with cough, chills and fatigue that began yesterday. Patient presents today because she is concerned that she might have COVID-19, and she would like to be tested as well as have a chest x-ray. Patient denies objective fever, sputum production. She was vaccinated against COVID-19 x2 and received her booster last week. Review of Systems: Review of Systems: Constitutional: See HPI Eyes: Denies change in visual acuity, visual field deficits or discharge HENT: Denies ear pain, nasal congestion or sore throat Respiratory: See HPI Cardiovascular: Denies chest pain, palpitations or edema GI: Denies abdominal pain, nausea, vomiting, bloody stools or diarrhea : Denies dysuria or hematuria Musculoskeletal: Denies back pain or joint pain Integument: Denies rash or other skin lesion Neurologic: Denies headache, focal weakness or sensory changes Heart Score: C/O Chest Pain: N/A Allergies: Allergies: Allergies Coded Allergies Type Severity Reaction Last Updated Verified fenofibrate Allergy Intermediate 08/08/21 Yes gabapentin Allergy Intermediate 08/08/21 Yes lisinopril Allergy Intermediate 08/08/21 Yes promethazine Allergy Intermediate 08/08/21 Yes rosuvastatin Allergy Intermediate 08/08/21 Yes sitagliptin Allergy Intermediate 08/08/21 Yes buspirone Adverse Reaction Intermediate N/V 04/04/20 Yes codeine Adverse Reaction Intermediate N/V 04/04/20 Yes glyburide Adverse Reaction Intermediate EDEMA 04/04/20 Yes propranolol Adverse Reaction Intermediate BRADYCARDIA 04/04/20 Yes Physical Exam: PE: Constitutional: Well developed, well nourished, no acute distress, chronically ill-appearing and fatigued. HENT: Normocephalic, atraumatic, bilateral external ears normal, nose normal. Eyes: EOMI, conjunctiva normal, no discharge. Neck: Normal range of motion, no stridor. Skin: Warm, dry, no erythema, no rash. Extremities: No cyanosis, no clubbing, ROM intact, no edema, no obvious def ormity. Neurologic: Alert and oriented x4, no focal deficits noted. Current Patient Data: Labs: Laboratory Tests Test 08/17/21 22:40 Influenza Type A Antigen Negative (NEGATIVE) Influenza Type B Antigen Negative (NEGATIVE) SARS-CoV-2 Antigen (Rapid) Positive (NEGATIVE) *A Vital Signs: Vital Signs Date Time Temp Pulse Resp B/P (MAP) Pulse Ox O2 Delivery O2 Flow Rate FiO2 08/17/21 22:32 98.5 96 20 146/70 (95) 95 Room Air 98.5 Radiology/Procedures: Radiology/Procedures: PROCEDURE: CHEST AP ONLY Exam: Chest one view INDICATION: Covid concern TECHNIQUE: Frontal view of the chest Comparisons: 08/08/2021 FINDINGS: The cardiomediastinal silhouette and pulmonary vessels are within normal limits. The lung and pleural spaces are clear. IMPRESSION: No acute cardiopulmonary process. Electronically signed by: Jimmy Lynne MD (08/17/2021 10:47 PM) [facility] Course & Med Decision Making: Course & Med Decision Making Pertinent Labs and Imaging studies reviewed. (See chart for details) Patient is a 75-year-old female who presents today for COVID-19 testing and evaluation of her multiple symptoms. Evaluation today will include swabs for influenza A&B as well as COVID-19, chest x-ray. Patient is COVID-positive. She states she is currently being treated with antibiotics for a stomach infection. In reviewing med list, it appears she is taking clarithromycin. No further antibiotic treatment is indicated at this time. Patient given quarantine instructions and return precautions. She understands and is agreeable to discharge plan. Dragon Disclaimer: Dragon Disclaimer: This electronic medical record was generated, in whole or in part, using a voice recognition dictation system. Departure Departure Impression: Primary Impression: COVID-19 virus infection Disposition: HOME / SELF CARE / HOMELESS Condition: STABLE Referrals: NO PCP (PCP) Patient Instructions: Viral Syndrome Additional Instructions: Follow the following supportive treatment measures: - Cool mist humidifier with plain water at bedside while you sleep - Tessalon perles (benzonatate) for cough, especially at night before bed - Take acetaminophen for body aches/fever/headache. If this is not sufficient, you may take tramadol. - Use the incentive spirometer 5 times per day with 10 deep breaths each time If antibiotics were prescribed, take them as directed. You have been tested for or diagnosed with COVID-19 infection. It is an infection caused by a new type of coronavirus. COVID-19 will cause cold-like or mild flu symptoms in most. It can cause more severe symptoms like problems breathing in some. There is no treatment for COVID-19. The body will clear the infection over time. Self-care will help to ease discomfort. Steps to Take: - Rest as needed. - Choose healthy foods including fruits and vegetables. Drink water throughout the day. - Get plenty of sleep each night. - If you smoke, try to quit. It may ease breathing. - Avoid alcohol. - Keep Others Healthy - The virus can spread to others. Droplets are released every time you sneeze or cough. The droplets can get into the mouth, nose, or eyes of people near you and lead to infection. To lower the chances of spreading COVID-19 to others: Stay at home until your doctor has said it is safe to leave. If you tested positive this will mean staying isolated until both of the following are true: - At least 10 days have passed since the start of illness. - You are free of fever for at least 72 hours without the use of medicine. During this time: - Avoid public areas, events, or transportation. Do not return to work or school until your doctor has said it is safe to do so. - Call ahead if you need to go to a medical center. Let them know you may have COVID-19. It will help them guide you where to go. They may also ask you to wear a facemask when you come to the office. - If you call for emergency medical services, let them know you may have COVID- 19. While at home: - Try to avoid close contact with others. Stay about 6 feet away. - If possible, spend most of your time in a separate room from others. - Use a face mask if you will be in close contact with others such as sharing a room or vehicle. - Have someone wipe down common surfaces in the home. Use household chair inspector and leveler every day on areas like doorknobs, counters, or sinks. - Cough or sneeze into a tissue. Throw the tissue away right after use. If a tissue is not available, cough or sneeze into your elbow. - Wash your hands often. Wash them after sneezing or coughing. Use soap and water and wash or at least 20 seconds. Alcohol based hand janitor cleaner can be used if soap and water is not available. - Do not prepare food for others. Avoid sharing personal items like forks, spoons, or toothbrushes. - Avoid close contact with pets while you are sick. There is no evidence of the virus passing to pets. This is a safety step until more is known about this virus. - Isolation can be frustrating. Social interaction can help. Keep in touch with friends and family through phone and tech options. You can still interact with others in your home, just keep a safe distance of about 6 feet. Follow-up: - Your doctors office will check in with you to see if there are any changes in your health. - You may be asked to keep track of symptoms to share with them. They will also let you know when you are clear to be in public again. Contact your doctor if your recovery is not going as you expect. Get emergency care if you have problems such as: - Trouble breathing with oxygen saturation <90% - Nonstop chest pain or pressure - Changes in awareness, confusion, or problems waking - Lips or face have bluish color - Worsening of symptoms If you think you have an emergency, call for emergency medical services right away. As taken from [facility] Health Scripts Tramadol Hcl (TRAMADOL HCL) 50 Mg Tablet 50 MG PO DAILY PRN for PAIN, #10 TAB 0 Refills Prov: KRUPA BLACK 08/17/21 Benzonatate (BENZONATATE) 100 Mg Capsule 1-2 CAP PO Q4HRS W/A, #30 CAP Prov: KRUPA BLACK 08/17/21 KRUPA BLACK Aug 17, 2021 23:37
[2021-08-17] MEDS ORDERED: BENZ-8 PO (23:56)
[2021-08-17] MEDS ORDERED: TRAM50TA PO (23:56)
== END 2021-08-18 00:12 | disposition home or self-care (01) ==
LOC: ER 20:51
DX: U07.1 COVID-19 (principal); I48.91 Unspecified atrial fibrillation; F41.9 Anxiety disorder, unspecified; F32.9 Major depressive disorder, single episode, unspecified; E10.9 Type 1 diabetes mellitus without complications; Z88.8 Allergy status to other drugs, medicaments and biological substances; Z88.5 Allergy status to narcotic agent
CPT/HCPCS: 71045; 87426; 87428; 99284

== ENCOUNTER 2021-09-09 18:27 | Emergency (ER) | payer MEDICAID ==
[~2021-09-09] VITALS: Ht 165.1 cm; Wt 75.0 kg
[~2021-09-09 18:27] MED LIST changes: +BENZ-8 PO; +TRAM50TA PO
[2021-09-09] MEDS ORDERED: DIPHTH,PERTUSS(ACELL),TET TOX 0.5 ML DISP.SYRIN. VAX IM ONE (20:00)
--- NOTE | 2021-09-09 20:54 | PHYS DOC ---
Past Medical History Past Medical History: A-Fib, Anxiety, Depression, Diabetes-Type I, Other Additional Past Medical Histor: TREMORS Past Surgical History: Other Additional Past Surgical Histo: ABDOMINAL, LEFT THIGH Smoking Status: Never Smoker Alcohol Use: None General Adult EDM: Chief Complaint: MECHANICAL FALL HPI: HPI: Patient is a 75 year old female with a history of diabetes type 1, A. fib on a blood thinner that she does not know the name, depression, anxiety, who presents the ED today to be evaluated after falling. Patient states he stood up too fast from sitting position and fell hitting her head on a metal animal cage. Denies any loss of consciousness. Denies any neck pain, mid or low back pain. Reports pain to her left ankle and left side of the head. Review of Systems: Review of Systems: Constitutional: Denies fever or chills. [] Eyes: Denies change in visual acuity. [] HENT: Denies nasal congestion or sore throat. [] Respiratory: Denies cough or shortness of breath. [] Cardiovascular: Denies chest pain or edema. [] GI: Denies abdominal pain, nausea, vomiting, bloody stools or diarrhea. [] : Denies dysuria. [] Musculoskeletal: Denies back pain or joint pain. [] Integument: Scalp laceration Neurologic: Reports falling and hitting her head on a metal animal cage, denies focal weakness or sensory changes. [] Psychiatric: Denies depression or anxiety. [] Heart Score: C/O Chest Pain: N/A Risk Factors: Risk Factors: DM, Current or recent (<one month) smoker, HTN, HLP, family history of CAD, obesity. Risk Scores: Score 0 - 3: 2.5% MACE over next 6 weeks - Discharge Home Score 4 - 6: 20.3% MACE over next 6 weeks - Admit for Clinical Observation Score 7 - 10: 72.7% MACE over next 6 weeks - Early Invasive Strategies Current Medications: Current Medications Medications (Trade) Dose Ordered Sig/Jose Start Time Stop Time Status Last Admin Dose Admin Diphtheria/ Tetanus/Acell Pertussis (Boostrix) 0.5 ml ONCE ONCE 09/09/21 20:00 09/09/21 20:01 DC Allergies: Allergies: Allergies Coded Allergies Type Severity Reaction Last Updated Verified fenofibrate Allergy Intermediate 08/08/21 Yes gabapentin Allergy Intermediate 08/08/21 Yes lisinopril Allergy Intermediate 08/08/21 Yes promethazine Allergy Intermediate 08/08/21 Yes rosuvastatin Allergy Intermediate 08/08/21 Yes sitagliptin Allergy Intermediate 08/08/21 Yes buspirone Adverse Reaction Intermediate N/V 04/04/20 Yes codeine Adverse Reaction Intermediate N/V 04/04/20 Yes glyburide Adverse Reaction Intermediate EDEMA 04/04/20 Yes propranolol Adverse Reaction Intermediate BRADYCARDIA 04/04/20 Yes Physical Exam: PE: Constitutional: Well developed, well nourished, no acute distress, non-toxic appearance. [] HENT: Normocephalic, atraumatic, bilateral external ears normal, oropharynx moist, no oral exudates, nose normal. [] Eyes: PERRLA, EOMI, conjunctiva normal, no discharge. [] Neck: Normal range of motion, no tenderness, supple, no stridor. [] Cardiovascular:Heart rate regular rhythm, no murmur [] Lungs & Thorax: Bilateral breath sounds clear to auscultation [] Abdomen: Bowel sounds normal, soft, no tenderness, no masses, no pulsatile masses. [] Skin: Left parietal scalp with a laceration approximately 1 cm long Back: No tenderness, no CVA tenderness. [] Extremities: No tenderness, no cyanosis, no clubbing, ROM intact, no edema. [] Neurologic: Alert and oriented X 3, normal motor function, normal sensory function, no focal deficits noted. Cranial nerves II through XII intact Psychologic: Affect normal, judgement normal, mood normal. [] Current Patient Data: Vital Signs: Vital Signs Date Time Temp Pulse Resp B/P (MAP) Pulse Ox O2 Delivery O2 Flow Rate FiO2 09/09/21 19:11 98.2 82 18 124/71 (88) 96 Room Air 98.2 EKG: EKG: [] Radiology/Procedures: Radiology/Procedures: Laceration/Wound Repair Wound Location: Left parietal scalp Wound's Depth, Shape: Vertical Wound Length (cm): Approximately 1 cm Wound Explored: clean Irrigated w/ Saline (ccs): 10 Wound Repaired With: 2 donal Progress : Wound was left open to air PROCEDURE: CT HEAD AND CERVICAL SPINE WO CT HEAD AND C-SPINE WO History: Fall, pain. Comparison: CT head 08/08/2021. Technique: Noncontrast CT of the head and cervical spine. Findings: CT HEAD: There is no evidence for intracranial mass or hemorrhage. There is no hydrocephalus or midline shift. No abnormal extra-axial fluid collections are present. No evidence of acute territorial infarction. Hypodensities of the periventricular and deep white matter likely represent chronic microvascular ischemic changes and possible right basal ganglia old lacunar infarct. The visualized paranasal sinuses and mastoid air cells are clear. The skull and scalp are within normal limits. CT CERVICAL SPINE: There is no evidence for fracture in the cervical spine. Reversal the normal cervical lordosis with apex at C5-C6. Mild anterolisthesis of C3 on C4 and C4 on C5. Circumferential disc osteophyte complex and disc height loss greatest at C5-C6 and C6-C7. Narrowing of the spinal canal to approximately 6 mm at C5-C6. Large facet hypertrophy at multiple levels. Multiple areas of moderate neural foraminal narrowing. No destructive osseous lesions are seen. Limited evaluation of the soft tissues of the neck and of the upper chest is unremarkable. Impression: 1. No acute intracranial findings. 2. No acute osseous abnormality in the cervical spine. Multilevel degenerative changes of the cervical spine. ------- Exposure: One or more of the following individualized dose reduction techniques were utilized for this examination: 1. Automated exposure control 2. Adjustment of the mA and/or kV according to patient size 3. Use of iterative reconstruction technique. Electronically signed by: Rikki Mcknight MD (09/09/2021 9:23 PM) [facility] DICTATED and SIGNED BY: RIKKI MCKNIGHT MD DATE: 09/09/[id number] 0 PROCEDURE: ANKLE LEFT 2V EXAM: XR EXAM OF ANKLE_LEFT 2V 09/09/2021 8:30 PM CLINICAL INDICATION: Trauma, ankle pain COMPARISON: None TECHNIQUE: 2 views of the left ankle FINDINGS: There is no acute fracture. Alignment is normal. Ankle mortise is symmetric and talar dome is intact. There are small calcaneal enthesophytes. Vascular calcifications are noted. Mild lateral soft tissue swelling. IMPRESSION: No acute osseous abnormality. Electronically signed by: Simona Sheth MD (09/09/2021 10:31 PM) [id number] DICTATED and SIGNED BY: SIMONA SHETH MD DATE: 09/09/[id number] 0 Course & Med Decision Making: Course & Med Decision Making Pertinent Labs and Imaging studies reviewed. (See chart for details) This is a 75-year-old female patient presenting to the ED today to be evaluated after falling. Complaining of laceration to the scalp, left ankle pain. Scalp laceration was closed by me as noted in procedures, tetanus updated. CT of the head and cervical spine are negative for any acute findings, left ankle x-rays are negative. Discharge home. Follow-up with PCP. Power Disclaimer: Power Disclaimer: This electronic medical record was generated, in whole or in part, using a voice recognition dictation system. Departure Departure Impression: Primary Impression: Scalp laceration Qualified Codes: S01.01XA - Laceration without foreign body of scalp, init ial encounter Additional Impressions: Head contusion Qualified Codes: S00.03XA - Contusion of scalp, initial encounter Fall from standing Qualified Codes: W19.XXXA - Unspecified fall, initial encounter Left ankle sprain Qualified Codes: S93.402A - Sprain of unspecified ligament of left ankle, initial encounter Disposition: 01 HOME / SELF CARE / HOMELESS Condition: STABLE Referrals: NON,STAFF (PCP) follow up with your doctor or ER in 7-10 days for staple removal Patient Instructions: Fall Prevention and Home Safety, Laceration Care, Adult Additional Instructions: You were evaluated in the emergency room, your CT of the head and cervical spine are negative for any acute findings, your left ankle x-rays are normal. Try to ice and elevate the affected areas. Take Tylenol for pain. Follow-up with your doctor next week. Please have your donal removed from your laceration on the head in 7 to 10 days. Monitor the area for any signs of infection including but not limited to increased redness, warmth, yellow drainage from the areas and return to the ED if they occur. You can shower and wash her hair. ELIAN MOYA APRN Sep 09, 2021 20:54
--- NOTE | 2021-09-09 21:26 | RAD ---
CT HEAD AND C-SPINE WO History: Fall, pain. Comparison: CT head 08/08/2021. Technique: Noncontrast CT of the head and cervical spine. Findings: CT HEAD: There is no evidence for intracranial mass or hemorrhage. There is no hydrocephalus or midline shift. No abnormal extra-axial fluid collections are present. No evidence of acute territorial infarction. Hypodensities of the periventricular and deep white huong er likely represent chronic microvascular ischemic changes and possible right basal ganglia old lacun ar infarct. The visualized paranasal sinuses and mastoid air cells are clear. The skull and scalp are within normal limits. CT CERVICAL SPINE: There is no evidence for fracture in the cervical spine. Reversal the normal cervical lordosis with apex at C5-C6. Mild anterolisthesis of C3 on C4 and C4 on C5. Circumferential disc osteophyte complex and disc height loss greatest at C5-C6 and C6-C7. Narrowi ng of the spinal canal to approximately 6 mm at C5-C6. Large facet hypertrophy at multiple levels. Multiple areas of moderate neural foraminal narrowing. No destructive osseous lesions are seen. Limited evaluation of the soft tissues of the neck and of the upper chest is unremarkable. Impression: 1. No acute intracranial findings. 2. No acute osseous abnormality in the cervical spine. Multilevel degenerative changes of the cervic al spine. ------- Exposure: One or more of the following individualized dose reduction techniques were utilized for thi s examination: 1. Automated exposure control 2. Adjustment of the mA and/or kV according to patient size 3. Use of iterative reconstruction technique. Electronically signed by: Rikki Huertas MD (09/09/2021 9:23 PM) [facility]
[2021-09-09 21:48] LABS: BILIRUBIN,URINE SMALL (NEG); COLOR,URINE AMBER; NITRITE,URINE NEGATIVE (NEG); PROTEIN,URINE NEGATIVE (NEG-TRACE)
[2021-09-09 21:54] LABS: CLARITY,URINE HAZY
[2021-09-09 21:55] LABS: HYALINE CASTS, URINE MODERATE /HPF
[2021-09-09 21:56] LABS: RBC,URINE OCC /HPF (0-2)
[2021-09-09 21:57] LABS: BACTERIA,URINE FEW /HPF (0-FEW)
[2021-09-09] MEDS ORDERED: ACETAMINOPHEN 500 MG TABLET PO ONE (22:30)
--- NOTE | 2021-09-09 22:33 | RAD ---
EXAM: XR EXAM OF ANKLE_LEFT 2V 09/09/2021 8:30 PM CLINICAL INDICATION: Trauma, ankle pain COMPARISON: None TECHNIQUE: 2 views of the left ankle FINDINGS: There is no acute fracture. Alignment is normal. Ankle mortise is symmetric and talar dome is intact. There are small calcaneal enthesophytes. Vascular calcifications are noted. Mild lateral soft tissue swelling. IMPRESSION: No acute osseous abnormality. Electronically signed by: Simona Sheth MD (09/09/2021 10:31 PM) [id number]
[2021-09-09 23:40] VITALS: BP 140/64
== END 2021-09-09 23:45 | disposition home or self-care (01) ==
LOC: ER 18:27
DX: S01.01XA Laceration without foreign body of scalp, initial encounter (principal); S93.402A Sprain of unspecified ligament of left ankle, initial encounter; I48.91 Unspecified atrial fibrillation; E10.9 Type 1 diabetes mellitus without complications; Z88.5 Allergy status to narcotic agent; Z88.8 Allergy status to other drugs, medicaments and biological substances; Z88.1 Allergy status to other antibiotic agents; Y93.89 Activity, other specified; W18.09XA Striking against other object with subsequent fall, initial encounter; Y92.89 Other specified places as the place of occurrence of the external cause; Y99.8 Other external cause status
CPT/HCPCS: 12001; 70450; 72125; 73600; 81001; 87086; 99285-25